=== PATIENT | female | born 1930 | race Caucasian/White ===

== ENCOUNTER 2016-11-06 12:25 | Inpatient (IN) | payer MEDICARE, OTHER ==
[~2016-11-06] VITALS: Ht 144.8 cm; Wt 51.7 kg
[~2016-11-06 12:25] MED LIST: /PANT40TA PO; ALLO100T PO; ASPI81TA31 PO; ATEN25TA PO; CALCCHW12 PO; NAPR250T2 PO; NEUR100C PO; NYSTOI EXT; SIMV20TA2 PO; TESS200C PO; ULTR37.539 PO; VITA-113 PO; VOLT1GEL2 TD; [UNRECOGNIZED DRUG - CODE] PO; systane OU
[2016-11-06] MEDS ORDERED: MORPHINE 2 MG/ML 1ML SYRINGE As Ordered ONE ×4 (13:01→16:49)
[2016-11-06] MEDS ORDERED: ONDANSETRON 4MG/2ML VIAL (J2405) As Ordered ONE ×2 (13:01→22:28)
[2016-11-06 13:37] LABS: BASO % 0.4 % (0.0-1.0); EOS # 0.1 K/mm3 (0.0-0.50); EOS % 1.2 % (0.0-3.0); LARGE UNSTAINED CELL # 0.1 K/mm3 (0.0-0.4); LARGE UNSTAINED CELL % 2.5 % (0.0-4.0); LYMPH # 1.4 K/mm3 (1.5-4.5); LYMPH % 31.4 % (24.0-44.0); MEAN CORPUSCULAR HEMOGLOBIN 32.8 pg (27.0-33.0); MEAN CORPUSCULAR VOLUME 102.5 fl (80.0-96.0); MONO # 0.1 K/mm3 (0.0-0.8); MONO % 3.1 % (0.0-5.0); NEUTROPHILS # 2.7 K/mm3 (1.8-7.7); NEUTROPHILS % 61.4 % (36.0-66.0); PLATELET COUNT, AUTOMATED 139 k/mm3 (150-450); RED CELL DISTRIBUTION WIDTH 13.2 % (11.5-14.5); WHITE BLOOD COUNT 4.5 K/mm3 (4.0-10.0)
[2016-11-06 13:49] LABS: ANION GAP 6 MEQ/L (8-16); BLOOD UREA NITROGEN 27 MG/DL (7-18); CARBON DIOXIDE LEVEL 31 MEQ/L (21-32); CHLORIDE LEVEL 106 MEQ/L (98-107); CREATININE FOR GFR 0.91 MG/DL (0.55-1.02); GLOMERULAR FILTRATION RATE > 60.0 (>32); GLUCOSE, FASTING 169 MG/DL (83-110); POTASSIUM SERUM 3.9 MEQ/L (3.5-5.1); SODIUM LEVEL 143 MEQ/L (136-145)
--- NOTE | 2016-11-06 14:44 | REP ---
AP PELVIS AND LEFT HIP: 11/06/2016. Clinical history: Trauma. Three views provided. Bones are demineralized. There are degenerative changes lumbar spine and SI joints. There is an intertrochanteric comminuted fracture with varus deformity of the left hip. No subluxation or dislocation of the left hip. No other fracture. Signed by Valente Melara MD 11/06/2016 07:40 P
--- NOTE | 2016-11-06 14:46 | REP ---
AP PORTABLE CHEST: 11/06/2016. Comparison: Seated AP portable chest compared to 05/16/2011 chest x-ray. Lungs are less well inflated than on the previous study with slight elevation right diaphragm. CP angles sharply defined. Some underlying fibrosis and apical scarring. No pulmonary edema or acute infiltrate. There is pulmonary artery hypertension. Left ventricular configuration of the heart again seen. The aorta is calcified at the arch, mildly tortuous. No widening of mediastinum. Bones demineralized. Impression: 1. Some underlying COPD, fibrosis and pulmonary artery hypertension with left ventricular configuration of the heart but no edema, infiltrate or effusion. Signed by Valente Melara MD 11/06/2016 07:40 P
[2016-11-06] MEDS ORDERED: ASPI1TAB PO (16:07)
[2016-11-06] MEDS ORDERED: PROT1TAB2 PO (16:07)
[2016-11-06] MEDS ORDERED: ALLO100T PO (16:07)
[2016-11-06] MEDS ORDERED: ATEN25TA PO (16:07)
[2016-11-06] MEDS ORDERED: TRAM37.53 PO (16:07)
[2016-11-06] MEDS ORDERED: VITA100066 PO (16:07)
[2016-11-06] MEDS ORDERED: COLA100C PO (16:07)
[2016-11-06] MEDS ORDERED: SIMV20TA2 PO (16:07)
[2016-11-06] MEDS ORDERED: FLAX1000 PO (16:07)
[2016-11-06] MEDS ORDERED: BRIM1OPD OU (16:07)
[2016-11-06] MEDS ORDERED: CALC600T21 PO (16:07)
[2016-11-06] MEDS ORDERED: ONDANSETRON 4MG/2ML VIAL (J2405) IV PRN ×2 (16:30→23:00)
[2016-11-06] MEDS ORDERED: DOCUSATE SODIUM 100 MG CAP PO PRN (16:30)
[2016-11-06] MEDS ORDERED: MORPHINE 2 MG/ML 1ML SYRINGE IV PRN (16:30)
[2016-11-06] MEDS ORDERED: PERCOCET 5MG/325MG TAB PO PRN ×2 (16:30→23:00)
--- NOTE | 2016-11-06 17:04 | HPEPDOC ---
Medical History and Physical Date of Admission Nov 06, 2016 at 16:16 History and Physical PRIMARY CARE PROVIDER: ATTENDING: Anderson Gallo MD CHIEF COMPLAINT: HISTORY OF PRESENT ILLNESS: This is a 86-year-old female with a past medical history of chronic left bundle- branch block, hypertension, hyperlipidemia, osteoporosis, compression fractures , squamous cell skin cancer, diverticulosis who presents status post fall. Patient's states that she is very short and needs a cushion under her chair when sitting at the dining table. Patient states that the cushion slipped off, and she fell off of the chair. Patient had a mechanical fall. No chest pain/ shortness of breath/syncopal episodes. No palpitations. No prior episodes. This is her first fall. Patient had no loss of consciousness. Patient was found to have a left hip fracture. I have spoken Dr. Sanchez given and this left bundle-branch block and no records available within these medical records. Dr. Sanchez viewed ther records from Dr. Villarreal' office, with a stress test that was done in 2012 which was negative. He has also stated that's the patient had an echocardiogram in 2014 with moderate aortic valve sclerosis however no stenosis. Preserved EF, grade 1 diastolic dysfunction. Patient is able to walk up 12 stairs with no dyspnea exertion or chest pain. She is typically very careful walking up the stairs on given the fact that she occasionally is unstable on her feet and occasionally uses a walker and a cane. Patient currently denies any chest pain/shortness of breath/palpitations. She does have an EKG with chronic left bundle-branch block. No arrhythmias. PAST MEDICAL HISTORY: As per HPI PAST SURGICAL HISTORY: Hysterectomy, bilateral breast reduction SOCIAL HISTORY: Denies tobacco, alcohol, illicit drug use. FAMILY HISTORY: Noncontributory ALLERGIES: Please see below. REVIEW OF SYSTEMS: HEENT: Denies sore throat/headache CARDIOVASCULAR: Denies chest pain/palpitations RESPIRATORY: No shortness of breath/cough GASTROINTESTINAL: denies nausea/vomiting GENITOURINARY: Denies dysuria/urinary urgency. MUSCULOSKELETAL: Denies myalgias/arthralgias NEUROLOGICAL: Denies any focal weakness Rest of ROS negative. HOME MEDICATIONS: Please see below. PHYSICAL EXAMINATION: Vitals: (see below) General: No acute distress, laying comfortably in bed. HEENT: Moist mucous membranes. Neck: No JVD or lymphadenopathy Cardiac: 2/6 systolic murmur LLSB. RRR Pulm: Clear to auscultation b/l. No wheezing, rhonchi Abd: NT/ND + BS Ext: No edema or cyanosis. Left hip shortened. Painful on movement. Distal pulses intact. LABORATORY DATA: See below. IMAGING: X ray left hip 11/06/16 Three views provided. Bones are demineralized. There are degenerative changes lumbar spine and SI joints. There is an intertrochanteric comminuted fracture with varus deformity of the left hip. No subluxation or dislocation of the left hip. No other fracture. CXR 11/06/16 Impression: 1. Some underlying COPD, fibrosis and pulmonary artery hypertension with left ventricular configuration of the heart but no edema, infiltrate or effusion. MICROBIOLOGY: Please see below. ASSESSMENT/PLAN: Left hip fracture status post Mechanical fall. Patient will be undergoing a left hip fracture repair with Dr. Mcarthur. Patient has a chronic left bundle branch block. No arrhythmias, is not in decompensated heart failure, no chest pain/palpitations, no history of diabetes, creatinine 0.9. This is an intermediate risk procedure and the patient is intermediate risk. The patient' s RCRI 0 with a 0.4% risk of major cardiac events. The patient is stable on from a cardiac perspective by Dr. Sanchez. She is also medically optimized. Pain management and DVT perplexes per orthopedics. Hypertension- I continue home meds. Will add amlodipine. Hyperlipidemia- continue statin Osteoporosis- on vitamin D GERD-continue PPI DVT prophylaxis per orthopedics Patient was followed by Dr. Wilson starting 11/07/16 at 7 AM. Vital Signs Blood pressure was 60/74, heart rate 77, respiratory rate 16, afebrile, 99% on room air Laboratory Data Labs 24H Laboratory Tests 2 11/06/16 12:59: Activated Partial Thromboplast Time 32.0, Anion Gap 6L, White Blood Count 4.5, Red Blood Count 3.51L, Hemoglobin 11.5L, Hematocrit 36.0, Mean Corpuscular Volume 102.5H, Mean Corpuscular Hemoglobin 32.8, Mean Corpuscular Hemoglobin Concent 32.0, Red Cell Distribution Width 13.2, Platelet Count 139L, Neutrophils (%) (Auto) 61.4, Lymphocytes (%) (Auto) 31.4, Monocytes (%) (Auto) 3.1, Eosinophils (%) (Auto) 1.2, Basophils (%) (Auto) 0.4, Neutrophils # (Auto) 2.7, Lymphocytes # (Auto) 1.4L, Monocytes # (Auto) 0.1, Eosinophils # (Auto) 0.1 , Basophils # (Auto) 0.0, Blood Urea Nitrogen 27H, Creatinine 0.91, Sodium Level 143, Potassium Level 3.9, Chloride Level 106, Carbon Dioxide Level 31, Calcium Level 9.0, Total Creatine Kinase 75, Creatine Kinase MB 3.4, Creatine Kinase MB Relative Index 4.53H, Glomerular Filtration Rate > 60.0, Large Unclassified Cells # 0.1, Large Unclassified Cells % 2.5, Prothromb Time International Ratio 1.00, Prothrombin Time 13.3, Troponin I 0.02 CBC/BMP Laboratory Tests 11/06/16 12:59 Calcium Level 9.0, Total Creatine Kinase 75, Red Blood Count 3.51 L, Mean Corpuscular Volume 102.5 H, Mean Corpuscular Hemoglobin 32.8, Mean Corpuscular Hemoglobin Concent 32.0, Red Cell Distribution Width 13.2, Neutrophils (%) (Auto ) 61.4, Lymphocytes (%) (Auto) 31.4, Monocytes (%) (Auto) 3.1, Eosinophils (%) ( Auto) 1.2, Basophils (%) (Auto) 0.4, Neutrophils # (Auto) 2.7, Lymphocytes # ( Auto) 1.4 L, Monocytes # (Auto) 0.1, Eosinophils # (Auto) 0.1, Basophils # (Auto ) 0.0 Home Medications Scheduled Allopurinol (Allopurinol) 100 Mg Tab 100 MG PO BID Aspirin (Aspirin 81) 81 Mg Tab 40.5 MG PO QHS Atenolol (Atenolol) 25 Mg Tab 12.5 MG PO QHS Brimonidine Tartrate 0.1% (Alphagan P) 100 Drop/5 Ml Soln 1 DROP OU BID Calcium Carbonate (Calcium) 600 Mg Tab 600 MG PO DAILY Cholecalciferol (Vitamin D) 1,000 Unit Tab 1,000 UNIT PO DAILY Linseed Oil (Flaxseed Oil) 1,000 Mg Cap 2,000 MG PO BID Pantoprazole Sodium Sesquihydr (Protonix) 40 Mg Tab 40 MG PO BID Simvastatin (Simvastatin) 20 Mg Tab 20 MG PO QHS Tramadol/Apap (Tramadol Hydrochloride/AC 37.5-325 mg) 1 Tab Tab 0.5 TAB PO QHS Scheduled PRN Docusate Sodium (Colace) 100 Mg Cap 100 MG PO BID PRN PRN CONSTIPATION Allergies Coded Allergies: IZABELLA Inhibitors (Verified Allergy, Severe, FACIAL SWELLING, LEG TINGLING, ) Angiotensin Receptor Blockers (Verified Allergy, Severe, FACIAL SWELLING, LEG TINGLING, 01/01/13) Carvedilol (Verified Allergy, Mild, RASH, 01/01/13) Penicillins (Verified Allergy, Mild, RASH, 01/01/13) Amoxicillin (Unverified Allergy, Unknown, RASH, 11/06/16) Clavulanic Acid (Unverified Allergy, Unknown, RASH, 11/06/16) Clindamycin (Unverified Allergy, Unknown, RASH, 11/06/16) Dexamethasone (Unverified Allergy, Unknown, HIVES, 11/06/16) Methylprednisolone (Unverified Allergy, Unknown, HIVES, 11/06/16) Hydrocortisone (Verified Adverse Reaction, Intermediate, BLISTERS, 01/01/13) ANDERSON GALLO MD Nov 06, 2016 17:03
[2016-11-06 18:00] VITALS: BP 154/67
--- NOTE | 2016-11-06 18:09 | EDDOCDS ---
Physician Documentation [facility] Name: Aliyah Washburn Age: 86 yrs Sex: Female : 1930 Arrival Date: 11/06/2016 Time: 12:25 Bed 14 Private MD: Disposition: 11/06 14:49 Critical Care: Critical care not applicable. pc Disposition: 11/06/16 14:51 Hospitalization ordered by Donnie Gallo for Inpatient Admission. Preliminary diagnosis are Fall from chair, Nondisplaced intertrochanteric fracture of left femur. - Bed requested for 5 [place]. - Status is Inpatient Admission. kc3 - Condition is Stable. - Problem is new. - Symptoms have improved. HPI: 12:51 This 86 yrs old Female presents to ER via Ambulance with complaints of Fall pc Injury. 12:51 The history is obtained from the patient. She slipped off her chair cushion she uses to pc boost herself at the dining table, landing on her left hip. She has pain in her groin and hip area. She denies hitting her head, LOC or any other injuries. At their worst, the symptoms were a 10 out of 10. In the emergency department, the symptoms are a 10 out of 10. The patient has not experienced similar symptoms in the past. The patient has been recently seen by their primary care provider, for a routine, regularly scheduled appointment. Historical: - Allergies: Dexamethasone Sodium Phosphate (Hives, Rash); Depo-Medrol (Hives, Rash); PENICILLINS (Rash); IZABELLA INHIBITORS (Rash); Augmentin (Rash); carvedilol (Rash); ANGIOTENSIN RECEPTOR ANTAGONIST (Rash); Clindamycin (Rash); - Home Meds: 1. atenolol 25 mg oral tab once daily 2. Protonix 40 mg Oral TbEC 1 tab 2 times per day 3. simvastatin 20 mg Oral tab 1 tab once daily 4. allopurinol 100 mg Oral tab 1 tab 2 times per day 5. Colace 100 mg oral cap 1 cap 2 times per day 6. tramadol 50 mg oral tab every 6 hours as needed 7. Calcium 600mg twice a day 8. aspirin 81 mg Oral chew 1 tab once daily 9. Vitamin D Oral 400 unit daily - PMHx: GERD; Gout; Hypercholesterolemia; Hypertension; Osteoporosis; Compression fractures; Squamous cell carcinoma; Diverticulosis; UTI; Left BBB; Vertigo; Anemia; - PSHx: Hysterectomy; bilateral breast reduction; - The history from nurses notes was reviewed: and I agree with what is documented. - Social history: Smoking status: Patient states was never smoker of tobacco. No barriers to communication noted, The patient speaks fluent Pashto, Speaks appropriately for age. - : The pt / caregiver states he / she is not on anticoagulants. Home medication list is obtained from the patient. - Hospitalizations: : No recent hospitalization is reported. - Exposure Risk Screening:: None identified. - Immunization history:: All immunizations up-to-date. - Family history: Not pertinent. - Social history:: the patient is a non-smoker, the patient does not drink alcohol. ROS: 12:51 All systems are negative except as listed. pc Exam: 12:51 General Appearance: alert, the patient is in mild distress. pc 12:51 EENT: normal eye inspection, ears, nose and throat normal, pharynx normal, mucous membranes moist 12:51 Neck: The exam reveals no acute abnormalities. ROM is normal and painless. No nuchal rigidity is noted.. 12:51 Respiratory: no respiratory distress, normal breath sounds, chest non-tender. 12:51 CVS: regular pulse rate, regular rhythm, normal S1 and S2, no murmurs, strong peripheral pulses. 12:51 Abdomen: soft, non-tender, no organomegaly, normal bowel sounds. 12:51 Back: normal inspection. 12:51 Skin: skin color is normal, warm, dry, healing right LE ulcer. 12:51 Extremities: grossly normal except: noted in the left hip: decreased ROM, pain, leg shortened by 2cm. NVT normal, noted in the left femoral area: pain. 12:51 Neuro: no motor deficits, no sensory deficits. Vital Signs: 12:45 BP 178 / 74 LA Sitting (auto/reg); Pulse 77; Resp 18; Temp 95.5; Pulse Ox 99% on R/A; jrd Weight 51.71 kg / 114 lbs (R); Height 57 in. (144.78 cm); 13:37 BP 193 / 82 (auto/); kc3 13:38 Pulse 64 MON; Pulse Ox 97% ; kc3 13:52 BP 194 / 81 (auto/); kc3 13:52 Pulse 68 MON; Pulse Ox 98% ; kc3 14:07 BP 173 / 70 (auto/); kc3 14:07 Pulse 66 MON; Pulse Ox 97% ; kc3 14:22 BP 184 / 77 (auto/); kc3 14:22 Pulse 68 MON; Temp 96.9(O); Pulse Ox 96% ; kc3 14:36 Pulse 64 MON; Pulse Ox 96% ; kc3 14:37 BP 162 / 58 (auto/); kc3 14:51 Pulse 66 MON; Pulse Ox 97% ; kc3 14:52 BP 164 / 70 (auto/); kc3 15:06 Pulse 64 MON; Pulse Ox 95% ; kc3 15:07 BP 160 / 71 (auto/); kc3 15:16 BP 160 / 71; kc3 15:22 BP 154 / 69 (auto/); kc3 15:22 Pulse 64 MON; Pulse Ox 94% ; kc3 15:37 BP 172 / 67 (auto/); kc3 15:37 Pulse 66 MON; Pulse Ox 98% ; kc3 15:51 Pulse 70 MON; Pulse Ox 100% ; kc3 15:52 BP 172 / 72 (auto/); kc3 16:07 Pulse 68 MON; Pulse Ox 98% ; kc3 16:07 BP 179 / 97 (auto/); kc3 16:18 Pulse 66 MON; Pulse Ox 96% ; kc3 16:20 BP 164 / 71 (auto/); kc3 16:36 Pulse 68 MON; Pulse Ox 95% ; kc3 16:37 BP 171 / 76 (auto/); kc3 16:57 BP 171 / 76; Pain 9/10; kc3 17:06 Pulse 68 MON; Pulse Ox 96% ; kc3 17:07 BP 154 / 66 (auto/); kc3 17:37 BP 174 / 69 (auto/); kc3 17:37 Pulse 66 MON; Pulse Ox 96% ; kc3 18:02 BP 146 / 71 RA Sitting (auto/reg); Pulse 74; Resp 18; Temp 96.6(O); Pulse Ox 97% on jrd R/A; Pain 8/10; 18:06 Pain 8/10; kc3 12:45 Body Mass Index 24.67 (51.71 kg, 144.78 cm) jrd MDM: 12:50 IV Saline Lock ordered. pc 12:50 morphine 2 mg IVP once ordered. pc 12:50 Ondansetron 4 mg IVP once ordered. pc 12:51 NOTHING BY MOUTH+DIET ordered. EDMS 12:51 Hip,AP,LAT to include Pelvis Ordered. EDMS 12:51 Differential Diagnosis: fall; left hip and pelvic contusions r/o fractures. Plan: pc analgesia, imaging. 13:20 NS 0.9% 1000 ml IV at 100 mL/hr continuous ordered. pc 13:22 Chest, 1 View Ordered. EDMS 13:22 CBC with Diff Ordered. EDMS 13:22 MED Profile Ordered. EDMS 13:22 CIP Ordered. EDMS 13:22 Troponin Ordered. EDMS 13:22 Type & Screen Ordered. EDMS 13:22 Pt & Aptt Ordered. EDMS 13:22 ECG WITH READING ER PHYS+CARDIAG ordered. EDMS 13:32 Financial registration complete. mm15 13:43 [facility] Payment Agreement was scanned into [employer] and attached to record. mm15 14:08 Test interpretation: EKG. pc 14:10 CBC with Diff Reviewed. pc 14:10 MED Profile Reviewed. pc 14:10 CIP Reviewed. pc 14:10 Troponin Reviewed. pc 14:10 Pt & Aptt Reviewed. pc 14:15 Repeat Temperature - Oral: Inform provider of result ordered. pc 14:26 Type & Screen Reviewed. pc 14:49 morphine 2 mg IVP every 15 minutes; Document pain score/vitals after each dose (Hold if pc SBP < 90mmHg) x3 ordered. 14:49 Data reviewed: old medical records, vital signs, nurses notes, EKG(s), lab test pc results, all radiology studies and available results. Test interpretation: LAB - all labs as ordered have been reviewed, interpreted and considered in the overall management of the clinical presentation; X-RAY - interpreted by Radiologist and personally reviewed, 1 view chest no acute disease, Hip Left Fracture Intertrochanteric. The patient has been re-examined and re-evaluated. The patient's symptoms have mildly improved after treatment. Physician consultation: Dr. Cecil Mcarthur regarding patient's condition, and will see patient in ED. 14:49 Physician consultation: Dr. Donnie Gallo regarding admission, and will see patient in ED. Disposition: The historical points, examination findings, and any diagnostic results supporting the provided diagnosis, were discussed with the patient or legal guardian. The need for further work-up and/or treatment in the hospital was explained. 14:50 BED REQUEST+ADM ordered. EDMS 16:20 Admission / Observation Status ordered. EDMS 16:20 NPO DIET ordered. EDMS 16:21 CARDIAC INJURY PROFILE Ordered. EDMS 16:21 TROPONIN Ordered. EDMS 16:23 PHYSICAL THERAPY EVAL & TREAT ordered. EDMS 16:52 Hip, IN O.R. Ordered. EDMS EC:08 Rate is 62 beats/min. Rhythm is regular, Normal Sinus Rhythm. Left axis deviation pc noted. QRS is negative in leads II, aVF. KS interval is normal. QRS interval is prolonged at 145 msec. T waves are Inverted in leads I, aVL, V5, V6. ST Segment is elevated in leads III, aVF, V1, V2, V3, 1-2mm. ST Segment is depressed in leads I, aVL, V5, V6. Clinical impression: Normal Sinus Rhythm, LBBB, and LAD. No change from previous ECG in April,. Administered Medications: 13:05 Drug: morphine 2 mg [morphine 2 mg/mL intravenous cartridge (1 mL)] Route: IVP; Site: [facility] left antecubital; 13:05 Drug: Ondansetron 4 mg [ondansetron HCl 2 mg/mL intravenous solution (2 mL)] Route: kc3 IVP; Site: left antecubital; 13:56 Drug: NS 0.9% 1000 ml [sodium chloride 0.9 % intravenous solution] Route: IV; Rate: 100 kc3 mL/hr; Site: left antecubital; 14:55 Drug: morphine 2 mg [morphine 2 mg/mL intravenous cartridge (1 mL)] Route: IVP; Site: [facility] left antecubital; 15:16 Follow up: BP 160 / 71; Pt reports does not want any more pain medication at this time. kc3 16:26 Drug: morphine 2 mg [morphine 2 mg/mL intravenous cartridge (1 mL)] Route: IVP; Site: 3 left antecubital; 16:57 Follow up: BP 171 / 76; Pain 9/10 Adult kc3 16:58 Drug: morphine 2 mg [morphine 2 mg/mL intravenous cartridge (1 mL)] Route: IVP; Site: [facility] left antecubital; 18:06 Follow up: Pain 8/10 Adult kc3 Signatures: Dispatcher [employer] EDMT Chafe, [place], MD MD pc Elyse Ruiz, Ophthalmic Aide Unit deg Kobe Ardon mm15 Nandini Vickers,RN RN kc3 The chart was reviewed and I authenticate all verbal orders and agree with the evaluation and treatment provided.Attachments: 13:43 [facility] Payment Agreement mm15 MTDD
--- NOTE | 2016-11-06 18:10 | EDDOCDS ---
Nurse's Notes [facility] Name: Aliyah Washburn Age: 86 yrs Sex: Female : 1930 Arrival Date: 11/06/2016 Time: 12:25 Bed 14 Private MD: Diagnosis: Fall from chair;Nondisplaced intertrochanteric fracture of left femur Presentation: 11/06 12:37 Presenting complaint: EMS states: Pt fell from chair to floor with injury to left hip. kc3 No LOC or head injury reported. Left left noted to be shortened and rotated out. Suicide/Homicide risk assessment- the patient denies having any suicidal and/or homicidal ideations and does not present with any other emotional, behavioral or mental health complaints. Status: Patient is not a health services information specialist or dependent. Transition of care: patient was not received from another setting of care. 12:37 Acuity: ELENI Level 3 kc3 12:37 Method Of Arrival: Ambulance kc3 13:15 Adult Sepsis Screening: The patient does not have new or worsening altered mentation. kc3 Patient's respiratory rate is less than 22. Systolic blood pressure is greater than 100. Patient has a qSOFA score of 0- Negative Sepsis Screen. Triage Assessment: 13:13 General: Appears uncomfortable, Behavior is appropriate for age, cooperative. Pain: kc3 Location: left hip. The patient is triaged at the bedside. See Assessment in Nurses Notes section of ED record. Neurological: Level of Consciousness is awake, alert, obeys commands, Oriented to person, place, time. Cardiovascular: Pulses are palpable in left dorsalis pedis artery. Respiratory: Respiratory effort is even, unlabored. Derm: Skin is normal. Musculoskeletal: Range of motion limited in left hip left leg noted to be shortened and externally rotated. Injury Description: pt fell. Historical: - Allergies: Dexamethasone Sodium Phosphate (Hives, Rash); Depo-Medrol (Hives, Rash); PENICILLINS (Rash); IZABELLA INHIBITORS (Rash); Augmentin (Rash); carvedilol (Rash); ANGIOTENSIN RECEPTOR ANTAGONIST (Rash); Clindamycin (Rash); - Home Meds: 1. atenolol 25 mg oral tab once daily 2. Protonix 40 mg Oral TbEC 1 tab 2 times per day 3. simvastatin 20 mg Oral tab 1 tab once daily 4. allopurinol 100 mg Oral tab 1 tab 2 times per day 5. Colace 100 mg oral cap 1 cap 2 times per day 6. tramadol 50 mg oral tab every 6 hours as needed 7. Calcium 600mg twice a day 8. aspirin 81 mg Oral chew 1 tab once daily 9. Vitamin D Oral 400 unit daily - PMHx: GERD; Gout; Hypercholesterolemia; Hypertension; Osteoporosis; Compression fractures; Squamous cell carcinoma; Diverticulosis; UTI; Left BBB; Vertigo; Anemia; - PSHx: Hysterectomy; bilateral breast reduction; - The history from nurses notes was reviewed: and I agree with what is documented. - Social history: Smoking status: Patient states was never smoker of tobacco. No barriers to communication noted, The patient speaks fluent Yakut, Speaks appropriately for age. - : The pt / caregiver states he / she is not on anticoagulants. Home medication list is obtained from the patient. - Hospitalizations: : No recent hospitalization is reported. - Exposure Risk Screening:: None identified. - Immunization history:: All immunizations up-to-date. - Family history: Not pertinent. - Social history:: the patient is a non-smoker, the patient does not drink alcohol. Screenin:15 Screening information is obtained from the patient. Fall risk: At risk due to prior kc3 history of falls, The following interventions are performed due to a positive Fall Risk Screen: Fall Risk is added to Special Handling on the patient Summary Screen. A Fall Risk Bracelet was applied to the patient. Side Rails are placed in the up position. A Call Topete is given with instruction to call for help when getting out of bed. Fall Alert bracelet is placed on the patient. Assistance ADL's: requires no assistance with activities of daily living. Abuse/DV Screen: The patient / caregiver reports he/she is: not in a situation that causes fear, pain or injury. Nutritional screening: No deficits noted. home support is adequate. 18:05 Advance Directives: Currently, there is a health care proxy, Nayana Michaud, kc3 daughter. Assessment: 13:15 General: See triage noted for initial assessment. . kc3 14:00 General: Appears in no apparent distress, comfortable, Behavior is appropriate for age, kc3 cooperative. Pain: Location: left hip. Neurological: No deficits noted. Respiratory: Respiratory effort is even, unlabored, Respiratory pattern is regular, symmetrical. Derm: Skin is pink, warm & dry. Family at bedside. 15:17 General: Appears in no apparent distress, comfortable, Behavior is appropriate for age, kc3 cooperative, Pt reports not wanting any more pain medication at this time. . Pain: Location: left hip. Neurological: No deficits noted. Respiratory: Respiratory effort is even, unlabored. Derm: Skin is pink, warm & dry. 16:26 General: Appears in no apparent distress, comfortable, Behavior is appropriate for age, kc3 cooperative, Pt requesting pain medication at this time. . 17:20 General: Appears in no apparent distress, comfortable, Behavior is appropriate for age, kc3 cooperative. Pain: Location: left hip. Neurological: No deficits noted. Respiratory: Respiratory effort is even, unlabored, Respiratory pattern is regular, symmetrical. Derm: Skin is pink, warm & dry. 18:03 General: Appears in no apparent distress, comfortable, Behavior is appropriate for age, kc3 cooperative. Pain: Location: left hip Pain currently is 8 out of 10 on a pain scale. Neurological: Level of Consciousness is awake, alert, obeys commands, Oriented to person, place, time. Respiratory: Respiratory effort is even, unlabored. Derm: Skin is pink, warm & dry. Vital Signs: 12:45 BP 178 / 74 LA Sitting (auto/reg); Pulse 77; Resp 18; Temp 95.5; Pulse Ox 99% on R/A; jrd Weight 51.71 kg (R); Height 57 in. (144.78 cm); 13:37 BP 193 / 82 (auto/); kc3 13:38 Pulse 64 MON; Pulse Ox 97% ; kc3 13:52 BP 194 / 81 (auto/); kc3 13:52 Pulse 68 MON; Pulse Ox 98% ; kc3 14:07 BP 173 / 70 (auto/); kc3 14:07 Pulse 66 MON; Pulse Ox 97% ; kc3 14:22 BP 184 / 77 (auto/); kc3 14:22 Pulse 68 MON; Temp 96.9(O); Pulse Ox 96% ; kc3 14:36 Pulse 64 MON; Pulse Ox 96% ; kc3 14:37 BP 162 / 58 (auto/); kc3 14:51 Pulse 66 MON; Pulse Ox 97% ; kc3 14:52 BP 164 / 70 (auto/); kc3 15:06 Pulse 64 MON; Pulse Ox 95% ; kc3 15:07 BP 160 / 71 (auto/); kc3 15:16 BP 160 / 71; kc3 15:22 BP 154 / 69 (auto/); kc3 15:22 Pulse 64 MON; Pulse Ox 94% ; kc3 15:37 BP 172 / 67 (auto/); kc3 15:37 Pulse 66 MON; Pulse Ox 98% ; kc3 15:51 Pulse 70 MON; Pulse Ox 100% ; kc3 15:52 BP 172 / 72 (auto/); kc3 16:07 Pulse 68 MON; Pulse Ox 98% ; kc3 16:07 BP 179 / 97 (auto/); kc3 16:18 Pulse 66 MON; Pulse Ox 96% ; kc3 16:20 BP 164 / 71 (auto/); kc3 16:36 Pulse 68 MON; Pulse Ox 95% ; kc3 16:37 BP 171 / 76 (auto/); kc3 16:57 BP 171 / 76; Pain 9/10; kc3 17:06 Pulse 68 MON; Pulse Ox 96% ; kc3 17:07 BP 154 / 66 (auto/); kc3 17:37 BP 174 / 69 (auto/); kc3 17:37 Pulse 66 MON; Pulse Ox 96% ; kc3 18:02 BP 146 / 71 RA Sitting (auto/reg); Pulse 74; Resp 18; Temp 96.6(O); Pulse Ox 97% on jrd R/A; Pain 8/10; 18:06 Pain 8/10; kc3 12:45 Body Mass Index 24.67 (51.71 kg, 144.78 cm) [facility] Vitals: 13:15 Log In Time N/A - ambulance arrival. [facility] ED Course: 12:26 Patient visited by Elyse Ruiz, Api Architect. deg 12:26 Nandini Vickers,RN is Primary Nurse. deg 12:26 Patient moved to Waiting deg 12:26 Patient moved to 14 deg 12:41 Triage Initiated 3 12:43 Tex Calvert MD is Attending Physician. pc 12:45 Pt greeted and oriented to ED. Patient advised of names of staff involved in care, jrd location of call topete, wait times and NPO status. Patient has correct armband on for positive identification. Placed in gown. Bed in low position. Call light in reach. Side rails up X2. monitoring tech on. Pulse ox on. NIBP on. 12:47 Patient visited by Jalen Thapa PCA. jrd 12:50 Patient visited by Tex Calvert MD. pc 13:16 Patient visited by Nandini Vickers,RN. kc3 13:16 The patient / caregiver is instructed regarding the plan of care and ED course. kc3 13:16 Inserted saline lock: 20 gauge in left antecubital area and blood collected. The kc3 patient tolerated the procedure well. 13:29 Pt & Aptt Sent. kc3 13:29 Type & Screen Sent. kc3 13:29 Troponin Sent. kc3 13:29 CIP Sent. kc3 13:29 MED Profile Sent. kc3 13:29 CBC with Diff Sent. kc3 13:39 Patient visited by Rimma Rojo. sew 13:39 EKG done. (by ED staff). Reviewed by Tex Calvert MD. sew 13:43 [facility] Payment Agreement was scanned into [employer] and attached to record. mm15 14:12 Patient visited by Nandini Vickers,RN. kc3 14:47 Patient visited by Nandini Vickers,CHARLENE. kc3 14:51 Donnie Gallo is Hospitalizing Provider. pc 14:59 Hip,AP,LAT to include Pelvis Returned. EDMS 14:59 Chest, 1 View Returned. EDMS 15:30 Patient moved to Admit Hold dy 15:30 Patient moved to 14 dy 18:03 Patient visited by Jalen Thapa PCA. jrd 18:04 No procedures done that require assistance. kc3 Administered Medications: 13:05 Drug: morphine 2 mg [morphine 2 mg/mL intravenous cartridge (1 mL)] Route: IVP; Site: kc3 left antecubital; 13:05 Drug: Ondansetron 4 mg [ondansetron HCl 2 mg/mL intravenous solution (2 mL)] Route: kc3 IVP; Site: left antecubital; 13:56 Drug: NS 0.9% 1000 ml [sodium chloride 0.9 % intravenous solution] Route: IV; Rate: 100 kc3 mL/hr; Site: left antecubital; 14:55 Drug: morphine 2 mg [morphine 2 mg/mL intravenous cartridge (1 mL)] Route: IVP; Site: kc3 left antecubital; 15:16 Follow up: BP 160 / 71; Pt reports does not want any more pain medication at this time. kc3 16:26 Drug: morphine 2 mg [morphine 2 mg/mL intravenous cartridge (1 mL)] Route: IVP; Site: kc3 left antecubital; 16:57 Follow up: BP 171 / 76; Pain 9/10 Adult kc3 16:58 Drug: morphine 2 mg [morphine 2 mg/mL intravenous cartridge (1 mL)] Route: IVP; Site: 3 left antecubital; 18:06 Follow up: Pain 8/10 Adult kc3 Intake: Order Results: Lab Order: CBC with Diff; SPEC'M 11/06/16 12:59 Test: WHITE BLOOD COUNT; Value: 4.5; Range: 4.0-10.0; Units: K/mm3; Status: F Test: RED BLOOD COUNT; Value: 3.51; Range: 4.00-5.40; Abnormal: Below low normal; Units: M/mm3; Status: F Test: HEMOGLOBIN; Value: 11.5; Range: 12.0-16.0; Abnormal: Below low normal; Units: g/dl; Status: F Test: HEMATOCRIT; Value: 36.0; Range: 36.0-47.0; Units: %; Status: F Test: MEAN CORPUSCULAR VOLUME; Value: 102.5; Range: 80.0-96.0; Abnormal: Above high normal; Units: fl; Status: F Test: MEAN CORPUSCULAR HEMOGLOBIN; Value: 32.8; Range: 27.0-33.0; Units: pg; Status: F Test: MEAN CORPUSCULAR HGB CONC; Value: 32.0; Range: 32.0-36.5; Units: g/dl; Status: F Test: RED CELL DISTRIBUTION WIDTH; Value: 13.2; Range: 11.5-14.5; Units: %; Status: F Test: PLATELET COUNT, AUTOMATED; Value: 139; Range: 150-450; Abnormal: Below low normal; Units: k/mm3; Status: F Test: NEUTROPHILS %; Value: 61.4; Range: 36.0-66.0; Units: %; Status: F Test: LYMPH %; Value: 31.4; Range: 24.0-44.0; Units: %; Status: F Test: MONO %; Value: 3.1; Range: 0.0-5.0; Units: %; Status: F Test: EOS %; Value: 1.2; Range: 0.0-3.0; Units: %; Status: F Test: BASO %; Value: 0.4; Range: 0.0-1.0; Units: %; Status: F Test: LARGE UNSTAINED CELL %; Value: 2.5; Range: 0.0-4.0; Units: %; Status: F Test: NEUTROPHILS #; Value: 2.7; Range: 1.8-7.7; Units: K/mm3; Status: F Test: LYMPH #; Value: 1.4; Range: 1.5-4.5; Abnormal: Below low normal; Units: K/mm3; Status: F Test: MONO #; Value: 0.1; Range: 0.0-0.8; Units: K/mm3; Status: F Test: EOS #; Value: 0.1; Range: 0.0-0.50; Units: K/mm3; Status: F Test: BASO #; Value: 0.0; Range: 0.0-0.2; Units: K/mm3; Status: F Test: LARGE UNSTAINED CELL #; Value: 0.1; Range: 0.0-0.4; Units: K/mm3; Status: F Lab Order: [facility]; [facility]' 11/06/16 12:59 Test: GLUCOSE, FASTING; Value: 169; Range: 83-110; Abnormal: Above high normal; Units: MG/DL; Status: F Test: BLOOD UREA NITROGEN; Value: 27; Range: 7-18; Abnormal: Above high normal; Units: MG/DL; Status: F Test: CREATININE FOR GFR; Value: 0.91; Range: 0.55-1.02; Units: MG/DL; Status: F Test: GLOMERULAR FILTRATION RATE; Value: > 60.0; Range: >32; Status: F Test: SODIUM LEVEL; Value: 143; Range: 136-145; Units: MEQ/L; Status: F Test: POTASSIUM SERUM; Value: 3.9; Range: 3.5-5.1; Units: MEQ/L; Status: F Test: CHLORIDE LEVEL; Value: 106; Range: 98-107; Units: MEQ/L; Status: F Test: CARBON DIOXIDE LEVEL; Value: 31; Range: 21-32; Units: MEQ/L; Status: F Test: ANION GAP; Value: 6; Range: 8-16; Abnormal: Below low normal; Units: MEQ/L; Status: F Test: CALCIUM LEVEL; Value: 9.0; Range: 8.8-10.2; Units: MG/DL; Status: F Test Note: ; Units are mL/min/1.73 m2 Chronic Kidney Disease Staging per NKF: Stage I & II GFR >=60 Normal to Mildly Decreased Stage III GFR 30-59 Moderately Decreased Stage IV GFR 15-29 Severely Decreased Stage V GFR <15 Very Little GFR Left ESRD GFR <15 on DATA SUPPORT SPECIALIST Lab Order: CIP; [facility] 11/06/16 12:59 Test: CPK CREATINE PHOSPHOKINASE; Value: 75; Range: 26-192; Units: U/L; Status: F Test: CK-MB VALUE MASS; Value: 3.4; Range: 0.0-3.6; Units: NG/ML; Status: F Test: MB/CK RELATIVE INDEX; Value: 4.53; Range: < OR =4; Abnormal: Above high normal; Status: F Test Note: ; DIAGNOSIS CRITERIA MMB ng/ml Relative Index (RI) NON-AMI < or = 5 N/A [place] > 5 < or = 4 AMI > 5 > 4 Lab Order: Troponin; 11/06/16 12:59 Test: TROPONIN I; Value: 0.02; Range: < 0.10; Units: NG/ML; Status: F Test Note: ; Troponin I Reference Interval for RegaloCard LOCI: 99th Percentile= 0.00-0.045 ng/ml Risk Stratification: <= 0.10 ng/ml Decreased Risk for Adverse Clinical Events. 0.10-1.50 ng/ml Increased Risk for Adverse Clinical Events. Evaluation of additional criterion and/or repeat testing in 2-6 hours is suggested to rule out myocardial damage. >= 1.50 ng/ml Indicative of Myocardial Injury. Lab Order: Type & Screen; [facility]11/06/16 12:59 Test: BLOOD TYPE; Value: O POS; Status: F Test: AB SCREEN (INDIRECT KENYON)VIS; Value: NEGATIVE; Status: F Lab Order: Pt & Aptt; SPEC'M 11/06/16 12:59 Test: PROTHROMBIN TIME; Value: 13.3; Range: 12.3-14.5; Units: SECONDS; Status: F Test: INR; Value: 1.00; Status: F Test: PARTIAL THROMBOPLASTIN TIME; Value: 32.0; Range: 26.6-37.1; Units: SECONDS; Status: F Test Note: ; THERAPUTIC HUMAN INR VALUES INDICATIONS NORMAL RANGES PROPHYLAXIS/TREATMENT OF: VENOUS THROMBOSIS 2.0-3.0 PULMONARY EMBOLISM 2.0-3.0 PREVENTION OF SYSTEMIC EMBOLISM FROM: TISSUE HEART VALVES 2.0-3.0 ACUTE MYOCARDIAL INFARCTION 2.0-3.0 VALVULAR HEART DISEASE 2.0-3.0 ATRIAL FIBRILLATION 2.0-3.0 MECHANICAL VALVES(HIGH RISK) 2.5-3.5 RECURRENT MYOCARDIAL INFARCTION 2.5-3.5 Radiology Order: Hip,AP,LAT to include Pelvis Test: Hip,AP,LAT to include Pelvis REASON FOR EXAMINATION: Trauma; AP PELVIS AND LEFT HIP: 11/06/2016.; ; Clinical history: Trauma.; ; Three views provided. Bones are demineralized. There are degenerative changes; lumbar spine and SI joints. There is an intertrochanteric comminuted fracture; with varus deformity of the left hip. No subluxation or dislocation of the left; hip. No other fracture.; ; Unreviewed; Radiology Order: Chest, 1 View Test: Chest, 1 View REASON FOR EXAMINATION: pre-op; AP PORTABLE CHEST: 11/06/2016.; ; Comparison: Seated AP portable chest compared to 05/16/2011 chest x-ray.; Lungs are less well inflated than on the previous study with slight elevation; right diaphragm. CP angles sharply defined. Some underlying fibrosis and apical; scarring. No pulmonary edema or acute infiltrate. There is pulmonary artery; hypertension. Left ventricular configuration of the heart again seen. The aorta; is calcified at the arch, mildly tortuous. No widening of mediastinum. Bones; demineralized.; ; Impression:; 1. Some underlying COPD, fibrosis and pulmonary artery hypertension with left; ventricular configuration of the heart but no edema, infiltrate or effusion.; ; Unreviewed; Outcome: 14:51 Decision to Hospitalize by Provider. 18:04 Discharge Assessment: patient administered narcotics - yes. Patient was admitted to the [address] or transferred to another facility. The following High Risk Discharge criteria are identified: None. Admitted to Med/Surg accompanied by tech, via stretcher, with chart. Condition: stable. No special radiology studies were completed. Property :Personal belongings accompany Pt. 18:09 Patient left the ED. [facility] Signatures: Dispatcher [employer] EDMS Tex Calvert MD MD pc Murray, Denise, Api Architect Unit deg [place], RN RN Rimma Miller Marlynn mm15 Jalen Thapa PCA PCA jrd Crane, Kelsi,RN RN [facility] Corrections: (The following items were deleted from the chart) 16:58 16:47 BP 171 / 76 [place] [address] MTDD
[2016-11-06] MEDS ORDERED: NS 1,000 ML IV SCH (19:00)
[2016-11-06] MEDS ORDERED: LIDOCAINE 2% INJ 100 MG/5 ML SDV (FOR ANES.) As Ordered ONE (20:10)
[2016-11-06] MEDS ORDERED: MIDAZOLAM INJ 2 MG/2 ML VIAL (J2250) As Ordered ONE (20:10)
[2016-11-06] MEDS ORDERED: PROPOFOL 200 MG/20 ML VIAL As Ordered ONE (20:10)
[2016-11-06] MEDS ORDERED: fentaNYL 100 MCG/2 ML INJECTION (J3010) As Ordered ONE ×2 (20:11→22:28)
[2016-11-06] MEDS ORDERED: ceFAZolin 1GM INJ (J0690) As Ordered ONE ×2 (20:24→21:08)
[2016-11-06] MEDS: fentaNYL 100 MCG/2 ML INJECTION (J3010) IV PRN ×4 (22:35→22:50)
[2016-11-06] MEDS ORDERED: LR 1,000 ML IV SCH (23:00)
[2016-11-06] MEDS ORDERED: PERCOCET 5MG/325MG TAB As Ordered ONE (23:04)
[2016-11-06] MEDS ORDERED: MORPHINE 10 MG/ML 1ML VIAL As Ordered ONE (23:04)
[2016-11-06] MEDS: MORPHINE 2 MG/ML 1ML SYRINGE IV PRN ×4 (23:08→23:48)
[2016-11-07] VITALS (11 sets, daily range): BP systolic 106–153; BP diastolic 53–76
[2016-11-07] MEDS: ASPIRIN 81 MG CHEW TABLET PO SCH ×2 (00:35→20:08)
[2016-11-07] MEDS: SIMVASTATIN 20 MG TAB PO SCH ×2 (00:36→20:08)
[2016-11-07] MEDS: ALLOPURINOL 100 MG TAB PO SCH ×3 (00:36→20:09)
[2016-11-07] MEDS: BRIMONIDINE 0.1% OPHTH SOLN 5 ML OU SCH ×3 (00:36→20:09)
[2016-11-07] MEDS: PANTOPRAZOLE 40MG TAB (PROTONIX) PO SCH ×3 (00:36→20:08)
[2016-11-07] MEDS: ATENOLOL 12.5MG PER 1/2 TABLET PO SCH ×2 (00:36→20:09)
[2016-11-07] MEDS ORDERED: PERCOCET 5MG/325MG TAB PO PRN (04:00)
[2016-11-07] MEDS ORDERED: ONDANSETRON 4 MG TAB (S0181) PO PRN ×2 (04:00→06:30)
--- NOTE | 2016-11-07 06:29 | ECGEPIP ---
Stationary ECG Study [facility] - ED Test Date: 2016-11-06 Pat Name: CHAR COX Department: Room: [place] [address] Gender: F Team Supervisor: temi : 1930 Requested By: Tex Florez Order Number: [id number] Reading MD: Lenny Currie Measurements Intervals [place] Rate: 62 P: 88 MN: 197 QRS: -40 QRSD: 145 T: 128 QT: 448 QTc: 456 Interpretive Statements SINUS RHYTHM MARKED LEFT AXIS DEVIATION LEFT BUNDLE BRANCH BLOCK NO OLD ECG FOR COMPARISON Electronically Signed On 11-07-2016 6:28:48 EST by Lenny Currie
[2016-11-07] MEDS ORDERED: ACETAMINOPHEN TAB 650MG DOSE (2X325MG) PO PRN (06:30)
[2016-11-07] MEDS: VITAMIN D 1,000 INTERNATIONAL UNITS TABLET PO SCH (09:09)
[2016-11-07] MEDS: MOM 30ML SUSPENSION UDC PO SCH (09:09)
[2016-11-07] MEDS: MIRALAX *UNIT DOSE* 17GM PACKET PO SCH (09:09)
[2016-11-07] MEDS: SENOKOT S TAB PO SCH ×2 (09:09→20:08)
[2016-11-07] MEDS ORDERED: NALOXONE INJ 0.4 MG/1 ML VIAL (J2310) IV STA ×2 (11:54→12:22)
[2016-11-07 12:05] LABS: MEAN CORPUSCULAR HEMOGLOBIN 33.4 pg (27.0-33.0); MEAN CORPUSCULAR HGB CONC 31.9 g/dl (32.0-36.5); MEAN CORPUSCULAR VOLUME 104.7 fl (80.0-96.0); RED CELL DISTRIBUTION WIDTH 13.7 % (11.5-14.5); WHITE BLOOD COUNT 9.6 K/mm3 (4.0-10.0)
[2016-11-07 12:14] LABS: ABG BASE EXCESS 3.2 (-2.0-2.0); ABG HCO3 30.2 MEQ/L (22.0-26.0); ABG PARTIAL PRESSURE O2 130.3 mmHg (75.0-100.0); ABG STANDARD HCO3 27.3 MEQ/L (22.0-26.0); ABG TOTAL CO2 32.1 MEQ/L (23.0-31.0); ABG pH (ARTERIAL) 7.311 UNITS (7.350-7.450)
[2016-11-07 12:21] LABS: ABG PARTIAL PRESSURE CO2 61.2 mmHg (35.0-45.0)
[2016-11-07 12:26] LABS: ANION GAP 6 MEQ/L (8-16); BLOOD UREA NITROGEN 20 MG/DL (7-18); CARBON DIOXIDE LEVEL 32 MEQ/L (21-32); CHLORIDE LEVEL 108 MEQ/L (98-107); CREATININE FOR GFR 0.92 MG/DL (0.55-1.02); GLOMERULAR FILTRATION RATE > 60.0 (>32); GLUCOSE, FASTING 142 MG/DL (83-110); POTASSIUM SERUM 4.2 MEQ/L (3.5-5.1); SODIUM LEVEL 146 MEQ/L (136-145)
--- NOTE | 2016-11-07 12:47 | IPN ---
DATE OF SERVICE: 11/07/2016 SUBJECTIVE: The patient is lethargic and tired, very difficult to arouse. OBJECTIVE: VITAL SIGNS: Temperature 96.6, pulse 80, respiratory rate 18, blood pressure 108/54, oxygen saturation 100% on 2 liters. GENERAL: She is a very frail, small female laying in bed sleeping deeply, with a decreased respiratory rate. She is extremely difficult to arouse. HEENT: She has pinpoint pupils, dry mucous membranes, slow deep breaths. CARDIOVASCULAR EXAMINATION: S1, S2. Regular. RESPIRATORY EXAMINATION: Fairly clear. ABDOMINAL EXAMINATION: Benign. EXTREMITIES: Her left hip dressing is clean, dry and intact. No clubbing, cyanosis or edema. LABORATORY STUDIES: Her laboratories from this morning are currently pending. She has two sets of cardiac enzymes, which are negative. Arterial blood gas was checked stat, which revealed a pH 7.3 pCO2 61.2 and a pO2 130.3. No new imaging. ASSESSMENT AND PLAN: This is an 86-year-old female postoperative day one for a left hip fracture after mechanical fall. PROBLEMS: 1. Acute pulmonary insufficiency following surgery Patient is likely CO2 retaining. She had received intravenous (IV) morphine and Percocet yesterday evening, as well as by mouth Percocet this morning. She is given 0.1 mg of IV Narcan and immediately wakes up. Upon awakening, she is fully oriented. I will provide her with additional Narcan. Will discontinue opiates. Monitor respiratory status very closely over the next several hours. 2. Left hip fracture status post mechanical fall and repair. Orthopedic surgery is greatly appreciated. Once again, we are discontinuing her narcotics. 3. Hypertension. Well controlled. She is on atenolol. 4. Gout. She is on allopurinol. 5. Osteoporosis. Patient is on vitamin D supplementation. 6. Dyslipidemia. She is on a statin. 7. Gastroesophageal reflux disease. She is on a proton pump inhibitor (PPI). 8. Deep venous thrombosis (DVT) prophylaxis. As per orthopedic surgery. She is on Coumadin. DISPOSITION: We will continue to monitor the patient closely. Monitor for respiratory status over the next several hours. [facility]
--- NOTE | 2016-11-07 13:29 | REP ---
LEFT HIP C-ARM FLUOROSCOPY: 11/06/2016. Four images from C-arm fluoroscopy provided to Dr. Mcarthur of the orthopedic division for ORIF of a comminuted intertrochanteric fracture. The four views show a intramedullary eleanor with threaded femoral nail transfixing the comminuted intertrochanteric fracture with essentially anatomic orientation of the distal metaphysis of the femur shows a single screw transversely fixing the distal tip of the intramedullary eleanor. Fluoroscopy time: 119 seconds. Signed by Valente Melara MD 11/07/2016 07:19 P
--- NOTE | 2016-11-07 15:37 | RO ---
PREPROCEDURE DIAGNOSIS: Left intertrochanteric proximal femur fracture. POSTPROCEDURE DIAGNOSIS: Left intertrochanteric proximal femur fracture. PROCEDURE: Left hip intertrochanteric fixation with a Gamma nail. SURGEON: Dr. Cecil Mcarthur SLURRY CONTROL OPERATOR HELPER: Carolee Aguero ANESTHESIA: ANESTHESIOLOGIST: Dr. Calhoun BLOOD LOSS: Less than 100 mL. REPLACED FLUIDS: 500 crystalloid. COMPLICATIONS: None. INDICATIONS: An 86-year-old female with a displaced left intertrochanteric hip fracture. After discussion of the risks and benefits of operative intervention, she elected to proceed. DESCRIPTION OF PROCEDURE: The patient was met in the preoperative holding area, the operative site was initialed, IV access was verified, consent was verified. She was taken to the operative suite where she was prepped and draped in the usual sterile fashion in the supine position on the fracture table. A preoperative fracture reduction was performed with traction and adduction. Once this was complete, we prepped and draped her sterilely and made a longitudinal incision just proximal to the greater trochanter. We used a curved awl to enter the proximal femur. The position of the awl was verified in orthogonal planes fluoroscopically, placed a ball-tip guidewire down the center of the femur and measured a total nail length of 38 cm. We reamed the proximal femur and then successfully reamed the canal to a size 11. We chose a 38 cm 10 mm Gamma nail, placed it down the center of the femur and affixed it proximally with a hip screw, about 105 mm in length with good center-center location of the femoral head. We used the compression mechanism to close down any residual fracture diastasis and fixed it in place with a proximal set screw. We fixed it distally with one interlock screw in the oblong hole to allow some compression in the future as the fracture settles. The wounds were irrigated copiously and closed sterilely. She was dressed sterilely. She was awakened and moved to her postoperative recovery bed and transferred to the recovery room in stable condition. POSTOPERATIVE PLAN: Slow return to weightbearing status with toe-touch weightbearing to start.
[2016-11-07] MEDS: ACETAMINOPHEN TAB 650MG DOSE (2X325MG) PO PRN ×2 (16:57→22:21)
[2016-11-07] MEDS ORDERED: WARFARIN SOD 5 MG TAB PO ONE (17:00)
[2016-11-08] MEDS: ACETAMINOPHEN TAB 650MG DOSE (2X325MG) PO PRN ×4 (03:47→21:55)
[2016-11-08 06:00] VITALS: BP 120/55
[2016-11-08 06:36] LABS: MEAN CORPUSCULAR HEMOGLOBIN 33.5 pg (27.0-33.0); MEAN CORPUSCULAR HGB CONC 32.3 g/dl (32.0-36.5); MEAN CORPUSCULAR VOLUME 103.9 fl (80.0-96.0); RED CELL DISTRIBUTION WIDTH 13.8 % (11.5-14.5); WHITE BLOOD COUNT 8.6 K/mm3 (4.0-10.0)
[2016-11-08 06:43] LABS: INR 1.38
[2016-11-08 06:48] LABS: ANION GAP 4 MEQ/L (8-16); BLOOD UREA NITROGEN 28 MG/DL (7-18); CALCIUM LEVEL 8.5 MG/DL (8.8-10.2); CARBON DIOXIDE LEVEL 34 MEQ/L (21-32); CHLORIDE LEVEL 106 MEQ/L (98-107); GLOMERULAR FILTRATION RATE > 60.0 (>32); GLUCOSE, FASTING 113 MG/DL (83-110); POTASSIUM SERUM 4.6 MEQ/L (3.5-5.1); SODIUM LEVEL 144 MEQ/L (136-145)
[2016-11-08] MEDS: ALLOPURINOL 100 MG TAB PO SCH ×2 (08:50→21:52)
[2016-11-08] MEDS: SENOKOT S TAB PO SCH ×2 (08:50→21:52)
[2016-11-08] MEDS: MOM 30ML SUSPENSION UDC PO SCH (08:50)
[2016-11-08] MEDS: VITAMIN D 1,000 INTERNATIONAL UNITS TABLET PO SCH (08:50)
[2016-11-08] MEDS: MIRALAX *UNIT DOSE* 17GM PACKET PO SCH (08:50)
[2016-11-08] MEDS: PANTOPRAZOLE 40MG TAB (PROTONIX) PO SCH ×2 (08:50→21:52)
[2016-11-08] MEDS: BRIMONIDINE 0.1% OPHTH SOLN 5 ML OU SCH ×2 (08:51→21:52)
--- NOTE | 2016-11-08 12:22 | IPN ---
DATE: 11/08/2016 SUBJECTIVE: Today the patient tells me that she feels tired and weak, but otherwise she is oriented to person, place, time, and situation. She denies chest pain, shortness of breath, fevers, chills, nausea, vomiting. OBJECTIVE: VITAL SIGNS: Temperature 98.4, pulse 57, respiratory rate 18, blood pressure 120/55, oxygen saturation 99% on two liters nasal cannula. GENERAL: She is a frail, elderly, female laying in bed. She does not appear to be in any acute distress. HEENT: Cranial nerves II-XII are grossly intact. She has moist mucous membranes. No elevation in her central venous pressure (CVP). CARDIOVASCULAR EXAM: S1, S2, regular. She is not tachycardic. RESPIRATORY EXAM: Fairly clear. She is kyphotic. ABDOMINAL EXAM: Benign. EXTREMITIES: No clubbing, cyanosis, or edema. Her left hip dressing is clean, dry, and intact. LABORATORY STUDIES: WBC 8.6, hemoglobin 7.4, down from 8.4 yesterday, hematocrit 24, platelet count 104. Chemistry panel: Sodium 144, potassium 4.6, chloride 106, bicarbonate 34, BUN 28, creatinine 0.8. No new imaging. ASSESSMENT AND PLAN: This is an 86-year-old female, postoperative day #2 for left hip fracture after a mechanical fall. 1. Postoperative acute pulmonary insufficiency. The patient did respond to Narcan. Since that time she has remained awake, alert, and oriented. 2. Left hip fracture status post mechanical repair. Orthopedic surgery's help is greatly appreciated. They are covering her pain medication and deep venous thrombosis (DVT) prophylaxis. The patient is working with physical therapy. However, patient was quite lethargic yesterday and today she likely will receive a blood transfusion so they have not adequately been able to evaluate her at this time. 3. Acute blood loss anemia postoperatively. The patient did have an acute drop in her hemoglobin and hematocrit which is not surprising given her advanced age and the surgical procedure she underwent. She will receive two units of packed red blood cells (PRBCs) today. 4. Hypertension. She is controlled on atenolol. 5. Gout. She is on allopurinol. 6. Osteoporosis. She is on vitamin D supplementation. 7. Dyslipidemia. She is on a statin. 8. Gastroesophageal reflux disease. She is on a proton pump inhibitor (PPI). 9. Deep venous thrombosis (DVT) prophylaxis. She is on Coumadin as per orthopedic surgery. DISPOSITION: Will continue to follow her very closely. She will likely require acute versus subacute rehabilitation based on her slow progress.
[2016-11-08 14:01] VITALS: BP 125/78
[2016-11-08] MEDS ORDERED: WARFARIN SOD 2.5 MG TAB PO ONE (17:00)
--- NOTE | 2016-11-08 19:10 | EDDOCDS ---
Nurse's Notes [facility] Name: Aliyah Washbrun Age: 86 yrs Sex: Female : 1930 Arrival Date: 11/06/2016 Time: 12:25 Bed 14 Private MD: Diagnosis: Fall from chair;Nondisplaced intertrochanteric fracture of left femur Presentation: 11/06 12:37 Presenting complaint: EMS states: Pt fell from chair to floor with injury to left hip. kc3 No LOC or head injury reported. Left left noted to be shortened and rotated out. Suicide/Homicide risk assessment- the patient denies having any suicidal and/or homicidal ideations and does not present with any other emotional, behavioral or mental health complaints. Status: Patient is not a furniture servicer or dependent. Transition of care: patient was not received from another setting of care. 12:37 Acuity: ELENI Level 3 kc3 12:37 Method Of Arrival: Ambulance kc3 13:15 Adult Sepsis Screening: The patient does not have new or worsening altered mentation. kc3 Patient's respiratory rate is less than 22. Systolic blood pressure is greater than 100. Patient has a qSOFA score of 0- Negative Sepsis Screen. Triage Assessment: 13:13 General: Appears uncomfortable, Behavior is appropriate for age, cooperative. Pain: kc3 Location: left hip. The patient is triaged at the bedside. See Assessment in Nurses Notes section of ED record. Neurological: Level of Consciousness is awake, alert, obeys commands, Oriented to person, place, time. Cardiovascular: Pulses are palpable in left dorsalis pedis artery. Respiratory: Respiratory effort is even, unlabored. Derm: Skin is normal. Musculoskeletal: Range of motion limited in left hip left leg noted to be shortened and externally rotated. Injury Description: pt fell. Historical: - Allergies: Dexamethasone Sodium Phosphate (Hives, Rash); Depo-Medrol (Hives, Rash); PENICILLINS (Rash); IZABELLA INHIBITORS (Rash); Augmentin (Rash); carvedilol (Rash); ANGIOTENSIN RECEPTOR ANTAGONIST (Rash); Clindamycin (Rash); - Home Meds: 1. atenolol 25 mg oral tab once daily 2. Protonix 40 mg Oral TbEC 1 tab 2 times per day 3. simvastatin 20 mg Oral tab 1 tab once daily 4. allopurinol 100 mg Oral tab 1 tab 2 times per day 5. Colace 100 mg oral cap 1 cap 2 times per day 6. tramadol 50 mg oral tab every 6 hours as needed 7. Calcium 600mg twice a day 8. aspirin 81 mg Oral chew 1 tab once daily 9. Vitamin D Oral 400 unit daily - PMHx: GERD; Gout; Hypercholesterolemia; Hypertension; Osteoporosis; Compression fractures; Squamous cell carcinoma; Diverticulosis; UTI; Left BBB; Vertigo; Anemia; - PSHx: Hysterectomy; bilateral breast reduction; - The history from nurses notes was reviewed: and I agree with what is documented. - Social history: Smoking status: Patient states was never smoker of tobacco. No barriers to communication noted, The patient speaks fluent Hungarian, Speaks appropriately for age. - : The pt / caregiver states he / she is not on anticoagulants. Home medication list is obtained from the patient. - Hospitalizations: : No recent hospitalization is reported. - Exposure Risk Screening:: None identified. - Immunization history:: All immunizations up-to-date. - Family history: Not pertinent. - Social history:: the patient is a non-smoker, the patient does not drink alcohol. Screenin:15 Screening information is obtained from the patient. Fall risk: At risk due to prior kc3 history of falls, The following interventions are performed due to a positive Fall Risk Screen: Fall Risk is added to Special Handling on the patient Summary Screen. A Fall Risk Bracelet was applied to the patient. Side Rails are placed in the up position. A Call Topete is given with instruction to call for help when getting out of bed. Fall Alert bracelet is placed on the patient. Assistance ADL's: requires no assistance with activities of daily living. Abuse/DV Screen: The patient / caregiver reports he/she is: not in a situation that causes fear, pain or injury. Nutritional screening: No deficits noted. home support is adequate. 18:05 Advance Directives: Currently, there is a health care proxy, Nayana Michaud, kc3 daughter. Assessment: 13:15 General: See triage noted for initial assessment. . kc3 14:00 General: Appears in no apparent distress, comfortable, Behavior is appropriate for age, kc3 cooperative. Pain: Location: left hip. Neurological: No deficits noted. Respiratory: Respiratory effort is even, unlabored, Respiratory pattern is regular, symmetrical. Derm: Skin is pink, warm & dry. Family at bedside. 15:17 General: Appears in no apparent distress, comfortable, Behavior is appropriate for age, kc3 cooperative, Pt reports not wanting any more pain medication at this time. . Pain: Location: left hip. Neurological: No deficits noted. Respiratory: Respiratory effort is even, unlabored. Derm: Skin is pink, warm & dry. 16:26 General: Appears in no apparent distress, comfortable, Behavior is appropriate for age, kc3 cooperative, Pt requesting pain medication at this time. . 17:20 General: Appears in no apparent distress, comfortable, Behavior is appropriate for age, kc3 cooperative. Pain: Location: left hip. Neurological: No deficits noted. Respiratory: Respiratory effort is even, unlabored, Respiratory pattern is regular, symmetrical. Derm: Skin is pink, warm & dry. 18:03 General: Appears in no apparent distress, comfortable, Behavior is appropriate for age, kc3 cooperative. Pain: Location: left hip Pain currently is 8 out of 10 on a pain scale. Neurological: Level of Consciousness is awake, alert, obeys commands, Oriented to person, place, time. Respiratory: Respiratory effort is even, unlabored. Derm: Skin is pink, warm & dry. Vital Signs: 12:45 BP 178 / 74 LA Sitting (auto/reg); Pulse 77; Resp 18; Temp 95.5; Pulse Ox 99% on R/A; jrd Weight 51.71 kg (R); Height 57 in. (144.78 cm); 13:37 BP 193 / 82 (auto/); kc3 13:38 Pulse 64 MON; Pulse Ox 97% ; kc3 13:52 BP 194 / 81 (auto/); kc3 13:52 Pulse 68 MON; Pulse Ox 98% ; kc3 14:07 BP 173 / 70 (auto/); kc3 14:07 Pulse 66 MON; Pulse Ox 97% ; kc3 14:22 BP 184 / 77 (auto/); kc3 14:22 Pulse 68 MON; Temp 96.9(O); Pulse Ox 96% ; kc3 14:36 Pulse 64 MON; Pulse Ox 96% ; kc3 14:37 BP 162 / 58 (auto/); kc3 14:51 Pulse 66 MON; Pulse Ox 97% ; kc3 14:52 BP 164 / 70 (auto/); kc3 15:06 Pulse 64 MON; Pulse Ox 95% ; kc3 15:07 BP 160 / 71 (auto/); kc3 15:16 BP 160 / 71; kc3 15:22 BP 154 / 69 (auto/); kc3 15:22 Pulse 64 MON; Pulse Ox 94% ; kc3 15:37 BP 172 / 67 (auto/); kc3 15:37 Pulse 66 MON; Pulse Ox 98% ; kc3 15:51 Pulse 70 MON; Pulse Ox 100% ; kc3 15:52 BP 172 / 72 (auto/); kc3 16:07 Pulse 68 MON; Pulse Ox 98% ; kc3 16:07 BP 179 / 97 (auto/); kc3 16:18 Pulse 66 MON; Pulse Ox 96% ; kc3 16:20 BP 164 / 71 (auto/); kc3 16:36 Pulse 68 MON; Pulse Ox 95% ; kc3 16:37 BP 171 / 76 (auto/); kc3 16:57 BP 171 / 76; Pain 9/10; kc3 17:06 Pulse 68 MON; Pulse Ox 96% ; kc3 17:07 BP 154 / 66 (auto/); kc3 17:37 BP 174 / 69 (auto/); kc3 17:37 Pulse 66 MON; Pulse Ox 96% ; kc3 18:02 BP 146 / 71 RA Sitting (auto/reg); Pulse 74; Resp 18; Temp 96.6(O); Pulse Ox 97% on jrd R/A; Pain 8/10; 18:06 Pain 8/10; kc3 12:45 Body Mass Index 24.67 (51.71 kg, 144.78 cm) [facility] Vitals: 13:15 Log In Time N/A - ambulance arrival. [facility] ED Course: 12:26 Patient visited by Elyse Ruiz, Manager Strategy. deg 12:26 Nandini Vickers,RN is Primary Nurse. deg 12:26 Patient moved to Waiting deg 12:26 Patient moved to 14 deg 12:41 Triage Initiated 3 12:43 Tex Calvert MD is Attending Physician. pc 12:45 Pt greeted and oriented to ED. Patient advised of names of staff involved in care, jrd location of call topete, wait times and NPO status. Patient has correct armband on for positive identification. Placed in gown. Bed in low position. Call light in reach. Side rails up X2. night clerk auditor on. Pulse ox on. NIBP on. 12:47 Patient visited by Jalen Thapa PCA. jrd 12:50 Patient visited by Tex Calvert MD. pc 13:16 Patient visited by Nandini Vickers,RN. kc3 13:16 The patient / caregiver is instructed regarding the plan of care and ED course. kc3 13:16 Inserted saline lock: 20 gauge in left antecubital area and blood collected. The kc3 patient tolerated the procedure well. 13:29 Pt & Aptt Sent. kc3 13:29 Type & Screen Sent. kc3 13:29 Troponin Sent. kc3 13:29 CIP Sent. kc3 13:29 MED Profile Sent. kc3 13:29 CBC with Diff Sent. kc3 13:39 Patient visited by Rimma Rojo. sew 13:39 EKG done. (by ED staff). Reviewed by Tex Calvert MD. sew 13:43 [facility] Payment Agreement was scanned into Zumper and attached to record. mm15 14:12 Patient visited by Nandini Vickers,RN. kc3 14:47 Patient visited by Nandini Vickers,CHARLENE. kc3 14:51 Donnie Gallo is Hospitalizing Provider. pc 14:59 Hip,AP,LAT to include Pelvis Returned. EDMS 14:59 Chest, 1 View Returned. EDMS 15:30 Patient moved to Admit Hold dy 15:30 Patient moved to 14 dy 18:03 Patient visited by Jalen Thapa PCA. jrd 18:04 No procedures done that require assistance. kc3 11/07 18:06 PCR was scanned into Zumper and attached to record. kf3 11/08 10:19 ECG/EKG was scanned into Zumper and attached to record. gb 10:19 PCR was scanned into Zumper and attached to record. gb Administered Medications: 11/06 13:05 Drug: morphine 2 mg [morphine 2 mg/mL intravenous cartridge (1 mL)] Route: IVP; Site: kc3 left antecubital; 13:05 Drug: Ondansetron 4 mg [ondansetron HCl 2 mg/mL intravenous solution (2 mL)] Route: kc3 IVP; Site: left antecubital; 13:56 Drug: NS 0.9% 1000 ml [sodium chloride 0.9 % intravenous solution] Route: IV; Rate: 100 kc3 mL/hr; Site: left antecubital; 14:55 Drug: morphine 2 mg [morphine 2 mg/mL intravenous cartridge (1 mL)] Route: IVP; Site: kc3 left antecubital; 15:16 Follow up: BP 160 / 71; Pt reports does not want any more pain medication at this time. kc3 16:26 Drug: morphine 2 mg [morphine 2 mg/mL intravenous cartridge (1 mL)] Route: IVP; Site: kc3 left antecubital; 16:57 Follow up: BP 171 / 76; Pain 9/10 Adult kc3 16:58 Drug: morphine 2 mg [morphine 2 mg/mL intravenous cartridge (1 mL)] Route: IVP; Site: kc3 left antecubital; 18:06 Follow up: Pain 8 Adult kc3 Intake: Order Results: Lab Order: CBC with Diff; SPEC'M 11/06/16 12:59 Test: WHITE BLOOD COUNT; Value: 4.5; Range: 4.0-10.0; Units: K/mm3; Status: F Test: RED BLOOD COUNT; Value: 3.51; Range: 4.00-5.40; Abnormal: Below low normal; Units: M/mm3; Status: F Test: HEMOGLOBIN; Value: 11.5; Range: 12.0-16.0; Abnormal: Below low normal; Units: g/dl; Status: F Test: HEMATOCRIT; Value: 36.0; Range: 36.0-47.0; Units: %; Status: F Test: MEAN CORPUSCULAR VOLUME; Value: 102.5; Range: 80.0-96.0; Abnormal: Above high normal; Units: fl; Status: F Test: MEAN CORPUSCULAR HEMOGLOBIN; Value: 32.8; Range: 27.0-33.0; Units: pg; Status: F Test: MEAN CORPUSCULAR HGB CONC; Value: 32.0; Range: 32.0-36.5; Units: g/dl; Status: F Test: RED CELL DISTRIBUTION WIDTH; Value: 13.2; Range: 11.5-14.5; Units: %; Status: F Test: PLATELET COUNT, AUTOMATED; Value: 139; Range: 150-450; Abnormal: Below low normal; Units: k/mm3; Status: F Test: NEUTROPHILS %; Value: 61.4; Range: 36.0-66.0; Units: %; Status: F Test: LYMPH %; Value: 31.4; Range: 24.0-44.0; Units: %; Status: F Test: MONO %; Value: 3.1; Range: 0.0-5.0; Units: %; Status: F Test: EOS %; Value: 1.2; Range: 0.0-3.0; Units: %; Status: F Test: BASO %; Value: 0.4; Range: 0.0-1.0; Units: %; Status: F Test: LARGE UNSTAINED CELL %; Value: 2.5; Range: 0.0-4.0; Units: %; Status: F Test: NEUTROPHILS #; Value: 2.7; Range: 1.8-7.7; Units: K/mm3; Status: F Test: LYMPH #; Value: 1.4; Range: 1.5-4.5; Abnormal: Below low normal; Units: K/mm3; Status: F Test: MONO #; Value: 0.1; Range: 0.0-0.8; Units: K/mm3; Status: F Test: EOS #; Value: 0.1; Range: 0.0-0.50; Units: K/mm3; Status: F Test: BASO #; Value: 0.0; Range: 0.0-0.2; Units: K/mm3; Status: F Test: LARGE UNSTAINED CELL #; Value: 0.1; Range: 0.0-0.4; Units: K/mm3; Status: F Lab Order: MED Profile; [facility] 11/06/16 12:59 Test: GLUCOSE, FASTING; Value: 169; Range: 83-110; Abnormal: Above high normal; Units: MG/DL; Status: F Test: BLOOD UREA NITROGEN; Value: 27; Range: 7-18; Abnormal: Above high normal; Units: MG/DL; Status: F Test: CREATININE FOR GFR; Value: 0.91; Range: 0.55-1.02; Units: MG/DL; Status: F Test: GLOMERULAR FILTRATION RATE; Value: > 60.0; Range: >32; Status: F Test: SODIUM LEVEL; Value: 143; Range: 136-145; Units: MEQ/L; Status: F Test: POTASSIUM SERUM; Value: 3.9; Range: 3.5-5.1; Units: MEQ/L; Status: F Test: CHLORIDE LEVEL; Value: 106; Range: 98-107; Units: MEQ/L; Status: F Test: CARBON DIOXIDE LEVEL; Value: 31; Range: 21-32; Units: MEQ/L; Status: F Test: ANION GAP; Value: 6; Range: 8-16; Abnormal: Below low normal; Units: MEQ/L; Status: F Test: CALCIUM LEVEL; Value: 9.0; Range: 8.8-10.2; Units: MG/DL; Status: F Test Note: ; Units are mL/min/1.73 m2 Chronic Kidney Disease Staging per NKF: Stage I & II GFR >=60 Normal to Mildly Decreased Stage III GFR 30-59 Moderately Decreased Stage IV GFR 15-29 Severely Decreased Stage V GFR <15 Very Little GFR Left ESRD GFR <15 on CARDING MACHINE OPERATOR Lab Order: CIP; SPEC'M 11/06/16 12:59 Test: CPK CREATINE PHOSPHOKINASE; Value: 75; Range: 26-192; Units: U/L; Status: F Test: CK-MB VALUE MASS; Value: 3.4; Range: 0.0-3.6; Units: NG/ML; Status: F Test: MB/CK RELATIVE INDEX; Value: 4.53; Range: < OR =4; Abnormal: Above high normal; Status: F Test Note: ; DIAGNOSIS CRITERIA MMB ng/ml Relative Index (RI) NON-AMI < or = 5 N/A [place] > 5 < or = 4 AMI > 5 > 4 Lab Order: Troponin; SPEC'M 11/06/16 12:59 Test: TROPONIN I; Value: 0.02; Range: < 0.10; Units: NG/ML; Status: F Test Note: ; Troponin I Reference Interval for Tag & See LOCI: 99th Percentile= 0.00-0.045 ng/ml Risk Stratification: <= 0.10 ng/ml Decreased Risk for Adverse Clinical Events. 0.10-1.50 ng/ml Increased Risk for Adverse Clinical Events. Evaluation of additional criterion and/or repeat testing in 2-6 hours is suggested to rule out myocardial damage. >= 1.50 ng/ml Indicative of Myocardial Injury. Lab Order: Type & Screen; SPEC'M 11/06/16 12:59 Test: BLOOD TYPE; Value: O POS; Status: F Test: AB SCREEN (INDIRECT [place]EN[place])VIS; Value: NEGATIVE; Status: F Lab Order: Pt & Aptt; SPEC'M 11/06/16 12:59 Test: PROTHROMBIN TIME; Value: 13.3; Range: 12.3-14.5; Units: SECONDS; Status: F Test: INR; Value: 1.00; Status: F Test: PARTIAL THROMBOPLASTIN TIME; Value: 32.0; Range: 26.6-37.1; Units: SECONDS; Status: F Test Note: ; THERAPUTIC HUMAN INR VALUES INDICATIONS NORMAL RANGES PROPHYLAXIS/TREATMENT OF: VENOUS THROMBOSIS 2.0-3.0 PULMONARY EMBOLISM 2.0-3.0 PREVENTION OF SYSTEMIC EMBOLISM FROM: TISSUE HEART VALVES 2.0-3.0 ACUTE MYOCARDIAL INFARCTION 2.0-3.0 VALVULAR HEART DISEASE 2.0-3.0 ATRIAL FIBRILLATION 2.0-3.0 MECHANICAL VALVES(HIGH RISK) 2.5-3.5 RECURRENT MYOCARDIAL INFARCTION 2.5-3.5 Radiology Order: Hip,AP,LAT to include Pelvis Test: Hip,AP,LAT to include Pelvis REASON FOR EXAMINATION: Trauma; AP PELVIS AND LEFT HIP: 11/06/2016.; ; Clinical history: Trauma.; ; Three views provided. Bones are demineralized. There are degenerative changes; lumbar spine and SI joints. There is an intertrochanteric comminuted fracture; with varus deformity of the left hip. No subluxation or dislocation of the left; hip. No other fracture.; ; Unreviewed; Radiology Order: Chest, 1 View Test: Chest, 1 View REASON FOR EXAMINATION: pre-op; AP PORTABLE CHEST: 11/06/2016.; ; Comparison: Seated AP portable chest compared to 05/16/2011 chest x-ray.; Lungs are less well inflated than on the previous study with slight elevation; right diaphragm. CP angles sharply defined. Some underlying fibrosis and apical; scarring. No pulmonary edema or acute infiltrate. There is pulmonary artery; hypertension. Left ventricular configuration of the heart again seen. The aorta; is calcified at the arch, mildly tortuous. No widening of mediastinum. Bones; demineralized.; ; Impression:; 1. Some underlying COPD, fibrosis and pulmonary artery hypertension with left; ventricular configuration of the heart but no edema, infiltrate or effusion.; ; Unreviewed; Outcome: 14:51 Decision to Hospitalize by Provider. 18:04 Discharge Assessment: patient administered narcotics - yes. Patient was admitted to the [address] or transferred to another facility. The following High Risk Discharge criteria are identified: None. Admitted to Med/Surg accompanied by tech, via stretcher, with chart. Condition: stable. No special radiology studies were completed. Property :Personal belongings accompany Pt. 18:09 Patient left the ED. [facility] Signatures: Dispatcher [employer] EDMS Tex Calvert MD MD pc Murray, Denise, Manager Strategy Unit deg Colleen Brice, Reg Reg gb [place], RN RN dy Jamal Ewing, Reg Reg kf3 Rimma Rojo Marlynn mm15 Jalen Thapa, HANDHOLE MACHINE OPERATOR HANDHOLE MACHINE OPERATOR d Nandini Vickers,RN RN 3 Corrections: (The following items were deleted from the chart) 16:58 16:47 BP 171 / [address] [place] [id number] Chart Complete MTDD
--- NOTE | 2016-11-08 19:10 | EDDOCDS ---
Physician Documentation [facility] Name: Aliyah Washburn Age: 86 yrs Sex: Female : 1930 Arrival Date: 11/06/2016 Time: 12:25 Bed 14 Private MD: Disposition: 11/06 14:49 Critical Care: Critical care not applicable. pc Disposition: 11/06/16 14:51 Hospitalization ordered by Donnie Gallo for Inpatient Admission. Preliminary diagnosis are Fall from chair, Nondisplaced intertrochanteric fracture of left femur. - Bed requested for 5 [place]. - Status is Inpatient Admission. kc3 - Condition is Stable. - Problem is new. - Symptoms have improved. HPI: 12:51 This 86 yrs old Female presents to ER via Ambulance with complaints of Fall pc Injury. 12:51 The history is obtained from the patient. She slipped off her chair cushion she uses to pc boost herself at the dining table, landing on her left hip. She has pain in her groin and hip area. She denies hitting her head, LOC or any other injuries. At their worst, the symptoms were a 10 out of 10. In the emergency department, the symptoms are a 10 out of 10. The patient has not experienced similar symptoms in the past. The patient has been recently seen by their primary care provider, for a routine, regularly scheduled appointment. Historical: - Allergies: Dexamethasone Sodium Phosphate (Hives, Rash); Depo-Medrol (Hives, Rash); PENICILLINS (Rash); IZABELLA INHIBITORS (Rash); Augmentin (Rash); carvedilol (Rash); ANGIOTENSIN RECEPTOR ANTAGONIST (Rash); Clindamycin (Rash); - Home Meds: 1. atenolol 25 mg oral tab once daily 2. Protonix 40 mg Oral TbEC 1 tab 2 times per day 3. simvastatin 20 mg Oral tab 1 tab once daily 4. allopurinol 100 mg Oral tab 1 tab 2 times per day 5. Colace 100 mg oral cap 1 cap 2 times per day 6. tramadol 50 mg oral tab every 6 hours as needed 7. Calcium 600mg twice a day 8. aspirin 81 mg Oral chew 1 tab once daily 9. Vitamin D Oral 400 unit daily - PMHx: GERD; Gout; Hypercholesterolemia; Hypertension; Osteoporosis; Compression fractures; Squamous cell carcinoma; Diverticulosis; UTI; Left BBB; Vertigo; Anemia; - PSHx: Hysterectomy; bilateral breast reduction; - The history from nurses notes was reviewed: and I agree with what is documented. - Social history: Smoking status: Patient states was never smoker of tobacco. No barriers to communication noted, The patient speaks fluent [place] Citizen, Speaks appropriately for age. - : The pt / caregiver states he / she is not on anticoagulants. Home medication list is obtained from the patient. - Hospitalizations: : No recent hospitalization is reported. - Exposure Risk Screening:: None identified. - Immunization history:: All immunizations up-to-date. - Family history: Not pertinent. - Social history:: the patient is a non-smoker, the patient does not drink alcohol. ROS: 12:51 All systems are negative except as listed. pc Exam: 12:51 General Appearance: alert, the patient is in mild distress. pc 12:51 EENT: normal eye inspection, ears, nose and throat normal, pharynx normal, mucous membranes moist 12:51 Neck: The exam reveals no acute abnormalities. ROM is normal and painless. No nuchal rigidity is noted.. 12:51 Respiratory: no respiratory distress, normal breath sounds, chest non-tender. 12:51 CVS: regular pulse rate, regular rhythm, normal S1 and S2, no murmurs, strong peripheral pulses. 12:51 Abdomen: soft, non-tender, no organomegaly, normal bowel sounds. 12:51 Back: normal inspection. 12:51 Skin: skin color is normal, warm, dry, healing right LE ulcer. 12:51 Extremities: grossly normal except: noted in the left hip: decreased ROM, pain, leg shortened by 2cm. NVT normal, noted in the left femoral area: pain. 12:51 Neuro: no motor deficits, no sensory deficits. Vital Signs: 12:45 BP 178 / 74 LA Sitting (auto/reg); Pulse 77; Resp 18; Temp 95.5; Pulse Ox 99% on R/A; jrd Weight 51.71 kg / 114 lbs (R); Height 57 in. (144.78 cm); 13:37 BP 193 / 82 (auto/); kc3 13:38 Pulse 64 MON; Pulse Ox 97% ; kc3 13:52 BP 194 / 81 (auto/); kc3 13:52 Pulse 68 MON; Pulse Ox 98% ; kc3 14:07 BP 173 / 70 (auto/); kc3 14:07 Pulse 66 MON; Pulse Ox 97% ; kc3 14:22 BP 184 / 77 (auto/); kc3 14:22 Pulse 68 MON; Temp 96.9(O); Pulse Ox 96% ; kc3 14:36 Pulse 64 MON; Pulse Ox 96% ; kc3 14:37 BP 162 / 58 (auto/); kc3 14:51 Pulse 66 MON; Pulse Ox 97% ; kc3 14:52 BP 164 / 70 (auto/); kc3 15:06 Pulse 64 MON; Pulse Ox 95% ; kc3 15:07 BP 160 / 71 (auto/); kc3 15:16 BP 160 / 71; kc3 15:22 BP 154 / 69 (auto/); kc3 15:22 Pulse 64 MON; Pulse Ox 94% ; kc3 15:37 BP 172 / 67 (auto/); kc3 15:37 Pulse 66 MON; Pulse Ox 98% ; kc3 15:51 Pulse 70 MON; Pulse Ox 100% ; kc3 15:52 BP 172 / 72 (auto/); kc3 16:07 Pulse 68 MON; Pulse Ox 98% ; kc3 16:07 BP 179 / 97 (auto/); kc3 16:18 Pulse 66 MON; Pulse Ox 96% ; kc3 16:20 BP 164 / 71 (auto/); kc3 16:36 Pulse 68 MON; Pulse Ox 95% ; kc3 16:37 BP 171 / 76 (auto/); kc3 16:57 BP 171 / 76; Pain 9/10; kc3 17:06 Pulse 68 MON; Pulse Ox 96% ; kc3 17:07 BP 154 / 66 (auto/); kc3 17:37 BP 174 / 69 (auto/); kc3 17:37 Pulse 66 MON; Pulse Ox 96% ; kc3 18:02 BP 146 / 71 RA Sitting (auto/reg); Pulse 74; Resp 18; Temp 96.6(O); Pulse Ox 97% on jrd R/A; Pain 8/10; 18:06 Pain 8/10; kc3 12:45 Body Mass Index 24.67 (51.71 kg, 144.78 cm) jrd MDM: 12:50 IV Saline Lock ordered. pc 12:50 morphine 2 mg IVP once ordered. pc 12:50 Ondansetron 4 mg IVP once ordered. pc 12:51 NOTHING BY MOUTH+DIET ordered. EDMS 12:51 Hip,AP,LAT to include Pelvis Ordered. EDMS 12:51 Differential Diagnosis: fall; left hip and pelvic contusions r/o fractures. Plan: pc analgesia, imaging. 13:20 NS 0.9% 1000 ml IV at 100 mL/hr continuous ordered. pc 13:22 Chest, 1 View Ordered. EDMS 13:22 CBC with Diff Ordered. EDMS 13:22 MED Profile Ordered. EDMS 13:22 CIP Ordered. EDMS 13:22 Troponin Ordered. EDMS 13:22 Type & Screen Ordered. EDMS 13:22 Pt & Aptt Ordered. EDMS 13:22 ECG WITH READING ER PHYS+CARDIAG ordered. EDMS 13:32 Financial registration complete. mm15 13:43 [facility] Payment Agreement was scanned into [email or web address] and attached to record. mm15 14:08 Test interpretation: EKG. pc 14:10 CBC with Diff Reviewed. pc 14:10 MED Profile Reviewed. pc 14:10 CIP Reviewed. pc 14:10 Troponin Reviewed. pc 14:10 Pt & Aptt Reviewed. pc 14:15 Repeat Temperature - Oral: Inform provider of result ordered. pc 14:26 Type & Screen Reviewed. pc 14:49 morphine 2 mg IVP every 15 minutes; Document pain score/vitals after each dose (Hold if pc SBP < 90mmHg) x3 ordered. 14:49 Data reviewed: old medical records, vital signs, nurses notes, EKG(s), lab test pc results, all radiology studies and available results. Test interpretation: LAB - all labs as ordered have been reviewed, interpreted and considered in the overall management of the clinical presentation; X-RAY - interpreted by Radiologist and personally reviewed, 1 view chest no acute disease, Hip Left Fracture Intertrochanteric. The patient has been re-examined and re-evaluated. The patient's symptoms have mildly improved after treatment. Physician consultation: Dr. Cecil Mcarthur regarding patient's condition, and will see patient in ED. 14:49 Physician consultation: Dr. Donnie Gallo regarding admission, and will see patient in ED. Disposition: The historical points, examination findings, and any diagnostic results supporting the provided diagnosis, were discussed with the patient or legal guardian. The need for further work-up and/or treatment in the hospital was explained. 14:50 BED REQUEST+ADM ordered. EDMS 16:20 Admission / Observation Status ordered. EDMS 16:20 NPO DIET ordered. EDMS 16:21 CARDIAC INJURY PROFILE Ordered. EDMS 16:21 TROPONIN Ordered. EDMS 16:23 PHYSICAL THERAPY EVAL & TREAT ordered. EDMS 16:52 Hip, IN O.R. Ordered. EDMS 11/07 18:06 PCR was scanned into [employer] and attached to record. kf3 11/08 10:19 ECG/EKG was scanned into [employer] and attached to record. gb 10:19 PCR was scanned into [employer] and attached to record. gb EC/11 14:08 Rate is 62 beats/min. Rhythm is regular, Normal Sinus Rhythm. Left axis deviation pc noted. QRS is negative in leads II, aVF. ME interval is normal. QRS interval is prolonged at 145 msec. T waves are Inverted in leads I, aVL, V5, V6. ST Segment is elevated in leads III, aVF, V1, V2, V3, 1-2mm. ST Segment is depressed in leads I, aVL, V5, V6. Clinical impression: Normal Sinus Rhythm, LBBB, and LAD. No change from previous ECG in April,. Administered Medications: 13:05 Drug: morphine 2 mg [morphine 2 mg/mL intravenous cartridge (1 mL)] Route: IVP; Site: kc3 left antecubital; 13:05 Drug: Ondansetron 4 mg [ondansetron HCl 2 mg/mL intravenous solution (2 mL)] Route: kc3 IVP; Site: left antecubital; 13:56 Drug: NS 0.9% 1000 ml [sodium chloride 0.9 % intravenous solution] Route: IV; Rate: 100 kc3 mL/hr; Site: left antecubital; 14:55 Drug: morphine 2 mg [morphine 2 mg/mL intravenous cartridge (1 mL)] Route: IVP; Site: kc3 left antecubital; 15:16 Follow up: BP 160 / 71; Pt reports does not want any more pain medication at this time. kc3 16:26 Drug: morphine 2 mg [morphine 2 mg/mL intravenous cartridge (1 mL)] Route: IVP; Site: 3 left antecubital; 16:57 Follow up: BP 171 / 76; Pain 9/10 Adult kc3 16:58 Drug: morphine 2 mg [morphine 2 mg/mL intravenous cartridge (1 mL)] Route: IVP; Site: kc3 left antecubital; 18:06 Follow up: Pain 05/05 Adult kc3 Signatures: Dispatcher [employer] EDMS Tex Calvert MD MD pc Murray, Denise, Client Relation Specialist Unit deg Babs, Colleen, Reg Reg gb Jamal Ewing, Reg Reg kf3 Kobe Ardon mm15 Nandini Vickers,RN RN kc3 The chart was reviewed and I authenticate all verbal orders and agree with the evaluation and treatment provided.Attachments: 13:43 [facility] [place] mm15 11/08 10:19 ECG/EKG gb Chart Complete MTDD
[2016-11-08] MEDS: SIMVASTATIN 20 MG TAB PO SCH (21:52)
[2016-11-08] MEDS: ASPIRIN 81 MG CHEW TABLET PO SCH (21:52)
[2016-11-08] MEDS: ATENOLOL 12.5MG PER 1/2 TABLET PO SCH (21:53)
[2016-11-08 22:00] VITALS: BP 153/67
[2016-11-09] MEDS: ACETAMINOPHEN TAB 650MG DOSE (2X325MG) PO PRN ×3 (02:31→13:26)
[2016-11-09 06:00] VITALS: BP 145/73
[2016-11-09 07:19] LABS: INR 1.57; MEAN CORPUSCULAR HEMOGLOBIN 33.5 pg (27.0-33.0); RED CELL DISTRIBUTION WIDTH 15.9 % (11.5-14.5)
[2016-11-09 07:25] LABS: ANION GAP 7 MEQ/L (8-16); BLOOD UREA NITROGEN 19 MG/DL (7-18); CALCIUM LEVEL 7.9 MG/DL (8.8-10.2); CARBON DIOXIDE LEVEL 33 MEQ/L (21-32); CHLORIDE LEVEL 103 MEQ/L (98-107); CREATININE FOR GFR 0.58 MG/DL (0.55-1.02); GLOMERULAR FILTRATION RATE > 60.0 (>32); GLUCOSE, FASTING 93 MG/DL (83-110); POTASSIUM SERUM 4.2 MEQ/L (3.5-5.1); SODIUM LEVEL 143 MEQ/L (136-145)
[2016-11-09] MEDS ORDERED: SENN1TAB2 PO (08:02)
[2016-11-09] MEDS ORDERED: COUM7.5T PO (08:02)
[2016-11-09 08:33] LABS: MEAN CORPUSCULAR VOLUME 100.1 fl (80.0-96.0)
[2016-11-09] MEDS: BRIMONIDINE 0.1% OPHTH SOLN 5 ML OU SCH ×2 (09:59→21:48)
[2016-11-09] MEDS: MIRALAX *UNIT DOSE* 17GM PACKET PO SCH (09:59)
[2016-11-09] MEDS: SENOKOT S TAB PO SCH ×2 (09:59→21:49)
[2016-11-09] MEDS: MOM 30ML SUSPENSION UDC PO SCH (09:59)
[2016-11-09] MEDS: ALLOPURINOL 100 MG TAB PO SCH ×2 (09:59→21:49)
[2016-11-09] MEDS: VITAMIN D 1,000 INTERNATIONAL UNITS TABLET PO SCH (09:59)
[2016-11-09] MEDS: PANTOPRAZOLE 40MG TAB (PROTONIX) PO SCH ×2 (09:59→21:49)
[2016-11-09 14:00] VITALS: BP 160/70
[2016-11-09] MEDS ORDERED: WARFARIN SOD 7.5 MG TAB PO ONE (17:00)
--- NOTE | 2016-11-09 18:15 | IPN ---
DATE: 11/09/2016 The patient is seen and examined. No acute events overnight. Denies any chest pain, pressure or discomfort. Still reported weakness and tired. Alert and oriented times three. Denies any chest pain, pressure, discomfort, shortness of breath, nausea, vomiting, fevers or chills. The patient did report having some discomfort with swallowing. VITAL SIGNS: Temperature is 97.9, pulse 72, respirations 16, blood pressure 160/70, pulse oximetry 100% on room air. LABORATORY DATA: WBC 8, hemoglobin and hematocrit 10/29.5, platelets 101. Chemistry: Sodium 143, potassium 4.2, chloride 103, bicarbonate 33, BUN 19, creatinine 0.58, INR 1.57. PHYSICAL EXAMINATION: GENERAL: Frail, elderly, female lying in bed in no acute distress. HEENT: Normocephalic, atraumatic. Moist mucous membranes. Cranial nerves II through XII grossly intact. CARDIAC: Regular. S1, S2. No murmurs detected. RESPIRATORY: Bilaterally clear. Distant breath sounds. ABDOMEN: Soft, nontender. Positive bowel sounds. EXTREMITIES: No clubbing, cyanosis or edema. Left hip dressing clean, dry and intact. ASSESSMENT AND PLAN: This is an 86-year-old female patient with underlying medical history of left bundle branch block, hypertension, dyslipidemia, osteoarthritis, compression fractures, squamous cell skin cancer, diverticulosis, who presented status post fall with left hip fracture. 1. Left hip fracture, status post mechanical repair, postoperative day number 3. Orthopedics consulted. Pain regimen and deep vein thrombosis (DVT) prophylaxis as per orthopedics. Physical therapy (PT), occupational therapy (OT) as per orthopedics as well. Physical Medicine and Rehabilitation (PM R) evaluation. The patient is on Coumadin for DVT prophylaxis. Was transfused 2 units packed red blood cells for acute blood loss anemia due to fracture. 2. Acute blood loss anemia. The patient received 2 units of packed red blood cells. Followup hemoglobin and hematocrit. Continue to monitor. 3. Postoperative acute hypercarbic respiratory failure, responded to Narcan. Currently improved and almost back to baseline respiratory status. We will continue to monitor. Avoid opioids as much as possible. 4. Hypertension. Continue atenolol. 5. Gout. Continue allopurinol. 6. Osteoporosis. Continue home medications. 7. Dyslipidemia. Continue statin. 8. Gastroesophageal reflux disease (GERD). Continue proton pump inhibitor. 9. Constipation. Continue bowel regimen. 10. Dysphagia. Speech and swallow evaluation. 11. DVT prophylaxis. The patient is on Coumadin as per orthopedic team. DISPOSITION: PT, BARB, PM R evaluation. Possible short term rehabilitation versus acute rehabilitation.
[2016-11-09 21:49] VITALS: BP 172/70
[2016-11-09] MEDS: ATENOLOL 12.5MG PER 1/2 TABLET PO SCH (21:49)
[2016-11-09] MEDS: SIMVASTATIN 20 MG TAB PO SCH (21:49)
[2016-11-09] MEDS: ASPIRIN 81 MG CHEW TABLET PO SCH (21:49)
[2016-11-09 22:00] VITALS: BP 172/70
[2016-11-10 06:00] VITALS: BP 125/65
[2016-11-10] MEDS: ACETAMINOPHEN TAB 650MG DOSE (2X325MG) PO PRN (06:25)
[2016-11-10 07:04] LABS: INR 1.84
[2016-11-10 07:05] LABS: MEAN CORPUSCULAR HEMOGLOBIN 32.2 pg (27.0-33.0); MEAN CORPUSCULAR HGB CONC 32.3 g/dl (32.0-36.5); MEAN CORPUSCULAR VOLUME 99.6 fl (80.0-96.0); RED CELL DISTRIBUTION WIDTH 15.7 % (11.5-14.5); WHITE BLOOD COUNT 6.9 K/mm3 (4.0-10.0)
[2016-11-10 07:12] LABS: ANION GAP 6 MEQ/L (8-16); BLOOD UREA NITROGEN 16 MG/DL (7-18); CALCIUM LEVEL 8.1 MG/DL (8.8-10.2); CARBON DIOXIDE LEVEL 34 MEQ/L (21-32); CHLORIDE LEVEL 102 MEQ/L (98-107); CREATININE FOR GFR 0.65 MG/DL (0.55-1.02); GLOMERULAR FILTRATION RATE > 60.0 (>32); GLUCOSE, FASTING 99 MG/DL (83-110); POTASSIUM SERUM 4.2 MEQ/L (3.5-5.1); SODIUM LEVEL 142 MEQ/L (136-145)
[2016-11-10] MEDS: MIRALAX *UNIT DOSE* 17GM PACKET PO SCH (09:36)
[2016-11-10] MEDS: VITAMIN D 1,000 INTERNATIONAL UNITS TABLET PO SCH (09:36)
[2016-11-10] MEDS: PANTOPRAZOLE 40MG TAB (PROTONIX) PO SCH (09:36)
[2016-11-10] MEDS: SENOKOT S TAB PO SCH (09:36)
[2016-11-10] MEDS: ALLOPURINOL 100 MG TAB PO SCH (09:36)
[2016-11-10] MEDS: MOM 30ML SUSPENSION UDC PO SCH (09:36)
[2016-11-10] MEDS: BRIMONIDINE 0.1% OPHTH SOLN 5 ML OU SCH (09:37)
--- NOTE | 2016-11-11 11:17 | DSES ---
DATE OF ADMISSION: 11/06/2016 DATE OF DISCHARGE: 11/10/2016 DISCHARGE DIAGNOSIS: Left hip fracture. SECONDARY DIAGNOSES: 1. Postoperative acute pulmonary insufficiency. 2. Acute blood loss anemia secondary to surgery. 3. Hypertension. 4. Gout. 5. Osteoporosis. 6. Dyslipidemia. 7. Gastroesophageal reflux disease (GERD). HOSPITAL COURSE: The patient is an 86-year-old female who suffered a mechanical fall and had a left hip fracture. She was re-stratified by medicine. She did undergo operative repair for her left hip on 11/06/2016. Postoperatively, she did have some acute pulmonary insufficiency where she began retaining PCO2 secondary to narcotics. She did receive Narcan with complete resolution of her symptoms. Shortly after this, the next day, the patient had symptomatic anemia, acute blood loss anemia secondary to her operative repair. She did receive 2 units of packed red blood cells and following this her hemoglobin and hematocrit remained stable and she improved symptomatically. SUBJECTIVE: Today, the patient tells me that she feels well. She has no complaints. She feels better than she has in many days. She is eager to leave the hospital and continue her rehabilitation. OBJECTIVE: VITAL SIGNS: Temperature is 96.9, pulse 55, respiratory rate 18, blood pressure 125/69, oxygen saturation 95% on room air. GENERAL: She is a frail, elderly, pleasant, female sitting in bed and eating breakfast. She does not appear to be in any distress. HEENT: Cranial nerves II through XII are grossly intact. She has moist mucous membranes. No elevation in central venous pressure. CARDIOVASCULAR EXAM: S1, S2. Regular. RESPIRATORY EXAM: Clear. ABDOMINAL EXAM: Benign. EXTREMITIES: No clubbing, cyanosis or edema. Her left hip dressing is clean, dry and intact. LABORATORY STUDIES: WBC 6.9, hemoglobin 10.5, hematocrit 32.5, platelet count 133. Chemistry panel: Sodium 142, potassium 4.2, chloride 102, bicarbonate 34, BUN 16, creatinine 0.6, INR is 1.8. No new imaging. ASSESSMENT AND PLAN: This is an 86-year-old female postoperative day 5 for left hip fracture after mechanical fall. 1. Post hip fracture, management as per orthopedic surgery. Activity, followup, and dressing changes as per orthopedic surgery, whose help has been greatly appreciated. 2. Postoperative and acute pulmonary insufficiency, resolved. 3. Acute blood loss anemia, resolved with transfusion. 4. Hypertension. Controlled with atenolol. 5. Gout. Controlled with allopurinol. 6. Osteoporosis. She is on vitamin D supplementation. 7. Dyslipidemia. She is on a statin. 8. Gastroesophageal reflux disease (GERD). She is on proton pump inhibitor. 9. Deep vein thrombosis (DVT) prophylaxis. The patient is on Coumadin. DISPOSITION: The patient is being discharged to [facility]. She is to followup with her primary care provider in [address] Barba in 2 weeks. She is to walk with a walker, partial weight bearing. Diet is as prior admission. Wound care is as per orthopedics, [place]. She is to return to the emergency room if her symptoms worsen. Shower as needed. DISCHARGE MEDICATIONS: At the time of discharge: - Senna plus 8.6/50 mg twice a day - Coumadin 3.75 mg - allopurinol 100 mg twice a day - aspirin mg at night - atenolol 12.5 mg at night - Alphagan one drop in each twice a day - calcium carbonate 600 mg daily - vitamin D 1000 units daily - cholestyramine 100 mg twice a day as needed for constipation - flax seed oil 2 grams twice a day, as per the patient - Protonix 40 mg twice a day - simvastatin 20 mg at night - tramadol/acetaminophen half of a tablet of 37.5/325 by mouth daily at bedtime Of note, the patient is to be on Coumadin through 12/06/2016 with a target INR of 2.0. She is to wear TEDs, off one hour in the morning and one hour in the evening. She is to call Dr. Barba if her temperature is greater than 101, increased pain, redness, swelling, or any concerns. Her appointment with Dr. Barba for followup is 11/24/2016 at 11:00 a.m. Greater than 30 minutes was spent organizing disposition.
== END 2016-11-10 13:30 | DRG 480 ==
LOC: M ED 12:25 → M MS5PR 16:15 → M ED INP 16:16 → M MS5PR 18:17
PROVIDERS: ADMIT Internal Medicine; ATTEND Internal Medicine
PROC: 0QS704Z Reposition Left Upper Femur with Internal Fixation Device, Open Approach (ICD-10-PCS; principal; 2016-11-06 16:33)
PROC: 30253N1 (ICD-10-PCS; 2016-11-08)
DX: S72.142A Displaced intertrochanteric fracture of left femur, initial encounter for closed fracture (principal); J95.2 Acute pulmonary insufficiency following nonthoracic surgery; D62 Acute posthemorrhagic anemia; W07.XXXA Fall from chair, initial encounter; Y92.011 Dining room of single-family (private) house as the place of occurrence of the external cause; I44.7 Left bundle-branch block, unspecified; I10 Essential (primary) hypertension; E78.5 Hyperlipidemia, unspecified; M81.0 Age-related osteoporosis without current pathological fracture; R26.81 Unsteadiness on feet; K21.9 Gastro-esophageal reflux disease without esophagitis; K59.00 Constipation, unspecified; I27.2 Other secondary pulmonary hypertension; R13.10 Dysphagia, unspecified; M10.9 Gout, unspecified; J44.9 Chronic obstructive pulmonary disease, unspecified; Z79.82 Long term (current) use of aspirin; Z79.899 Other long term (current) drug therapy; Z79.891 Long term (current) use of opiate analgesic; Z85.828 Personal history of other malignant neoplasm of skin; Z90.710 Acquired absence of both cervix and uterus; Z88.0 Allergy status to penicillin; Z88.1 Allergy status to other antibiotic agents; Z88.8 Allergy status to other drugs, medicaments and biological substances; Y99.8 Other external cause status

== ENCOUNTER → 2016-11-11 | Outpatient (REF) ==
[~2016-11-11] MED LIST changes: +ASPI1TAB PO; +BRIM1OPD OU; +CALC600T21 PO; +COLA100C PO; +COUM7.5T PO; +FLAX1000 PO; +PROT1TAB2 PO; +SENN1TAB2 PO; +TRAM37.53 PO; +VITA100066 PO
[2016-11-11 09:23] LABS: INR 1.64
== END ==
LOC: SKLAB3 08:00
PROVIDERS: ATTEND Family Medicine
DX: Z79.01 Long term (current) use of anticoagulants (principal)

== ENCOUNTER → 2016-11-15 | Outpatient (REF) ==
[2016-11-15 09:20] LABS: INR 1.9
[2016-11-15 09:33] LABS: BASO % 0.5 % (0.0-1.0); EOS # 0.2 K/mm3 (0.0-0.50); EOS % 2.4 % (0.0-3.0); LARGE UNSTAINED CELL # 0.2 K/mm3 (0.0-0.4); LARGE UNSTAINED CELL % 2.4 % (0.0-4.0); LYMPH % 25.6 % (24.0-44.0); MEAN CORPUSCULAR HGB CONC 32.3 g/dl (32.0-36.5); MEAN CORPUSCULAR VOLUME 102.3 fl (80.0-96.0); MONO # 0.5 K/mm3 (0.0-0.8); MONO % 6.2 % (0.0-5.0); NEUTROPHILS # 4.5 K/mm3 (1.8-7.7); NEUTROPHILS % 62.8 % (36.0-66.0); PLATELET COUNT, AUTOMATED 252 k/mm3 (150-450); RED CELL DISTRIBUTION WIDTH 15.4 % (11.5-14.5); WHITE BLOOD COUNT 7.2 K/mm3 (4.0-10.0)
[2016-11-15 09:44] LABS: ANION GAP 10 MEQ/L (8-16); BLOOD UREA NITROGEN 26 MG/DL (7-18); CALCIUM LEVEL 8.4 MG/DL (8.8-10.2); CARBON DIOXIDE LEVEL 30 MEQ/L (21-32); CHLORIDE LEVEL 100 MEQ/L (98-107); CHOLESTEROL LEVEL 126 MG/DL (<200); CREATININE FOR GFR 0.78 MG/DL (0.55-1.02); GLOMERULAR FILTRATION RATE > 60.0 (>32); GLUCOSE, FASTING 138 MG/DL (83-110); POTASSIUM SERUM 4.4 MEQ/L (3.5-5.1); SODIUM LEVEL 140 MEQ/L (136-145); TRIGLYCERIDES LEVEL 121 MG/DL (<150)
== END ==
LOC: SKLAB3 08:00
PROVIDERS: ATTEND Family Medicine
DX: Z51.81 Encounter for therapeutic drug level monitoring (principal); Z79.01 Long term (current) use of anticoagulants; Z79.899 Other long term (current) drug therapy

== ENCOUNTER → 2016-11-18 | Outpatient (REF) ==
[2016-11-18 08:25] LABS: INR 2.04
== END ==
LOC: SKLAB3 07:00
PROVIDERS: ATTEND Family Medicine
DX: Z79.01 Long term (current) use of anticoagulants (principal)

== ENCOUNTER → 2016-11-22 | Outpatient (REF) ==
[2016-11-22 09:26] LABS: INR 1.95
== END ==
LOC: SKLAB3 12:58
PROVIDERS: ATTEND Family Medicine
DX: Z79.01 Long term (current) use of anticoagulants (principal)

== ENCOUNTER → 2016-11-25 | Outpatient (REF) ==
[2016-11-25 10:04] LABS: INR 1.65
== END ==
LOC: SKLAB3 07:23
PROVIDERS: ATTEND Family Medicine
DX: Z79.01 Long term (current) use of anticoagulants (principal)

== ENCOUNTER → 2016-11-29 | Outpatient (REF) ==
[2016-11-29 09:04] LABS: INR 1.87
== END ==
LOC: SKLAB3 12:44
PROVIDERS: ATTEND Family Medicine
DX: Z79.01 Long term (current) use of anticoagulants (principal)

== ENCOUNTER → 2016-12-02 | Outpatient (REF) ==
[2016-12-02 08:20] LABS: INR 1.81
== END ==
LOC: SKLAB3 07:00
PROVIDERS: ATTEND Family Medicine
DX: Z79.01 Long term (current) use of anticoagulants (principal)

== ENCOUNTER → 2017-01-24 | Outpatient (REF) ==
[~2017-01-24] MED LIST changes: -COLA100C PO; +COLA100C3 PO
[2017-01-24 09:23] LABS: BASO % 0.6 % (0.0-1.0); EOS # 0.1 K/mm3 (0.0-0.50); EOS % 2.1 % (0.0-3.0); LARGE UNSTAINED CELL # 0.1 K/mm3 (0.0-0.4); LARGE UNSTAINED CELL % 1.9 % (0.0-4.0); LYMPH # 1.6 K/mm3 (1.5-4.5); LYMPH % 27.9 % (24.0-44.0); MEAN CORPUSCULAR HEMOGLOBIN 36.1 pg (27.0-33.0); MEAN CORPUSCULAR HGB CONC 34.7 g/dl (32.0-36.5); MONO # 0.3 K/mm3 (0.0-0.8); MONO % 5.3 % (0.0-5.0); NEUTROPHILS # 3.5 K/mm3 (1.8-7.7); NEUTROPHILS % 62.1 % (36.0-66.0); PLATELET COUNT, AUTOMATED 166 k/mm3 (150-450); RED CELL DISTRIBUTION WIDTH 13.4 % (11.5-14.5); WHITE BLOOD COUNT 5.7 K/mm3 (4.0-10.0)
[2017-01-24 09:38] LABS: ANION GAP 4 MEQ/L (8-16); BLOOD UREA NITROGEN 27 MG/DL (7-18); CARBON DIOXIDE LEVEL 35 MEQ/L (21-32); CHLORIDE LEVEL 101 MEQ/L (98-107); CREATININE FOR GFR 0.89 MG/DL (0.55-1.02); GLOMERULAR FILTRATION RATE > 60.0 (>32); GLUCOSE, FASTING 123 MG/DL (83-110); POTASSIUM SERUM 4.1 MEQ/L (3.5-5.1); SODIUM LEVEL 140 MEQ/L (136-145); URIC ACID 2.9 MG/DL (2.6-6.0)
== END ==
LOC: SKLAB3 08:00
PROVIDERS: ATTEND Family Medicine
DX: I10 Essential (primary) hypertension (principal); M10.9 Gout, unspecified

== ENCOUNTER → 2017-03-09 | Outpatient (REF) | payer MEDICARE, OTHER | LOC: M LAB REF 15:15 | PROVIDERS: ATTEND Nurse Practitioner Family | DX: L08.9 Local infection of the skin and subcutaneous tissue, unspecified (principal) ==

== ENCOUNTER → 2017-07-15 | Outpatient (REF) | payer MEDICARE, OTHER ==
[~2017-07-15] MED LIST changes: -CALC600T21 PO; +CALC600T60 PO; -COLA100C3 PO; +COLA100C5 PO
== END ==
LOC: SKLAB3 07:02
PROVIDERS: ATTEND Family Medicine
DX: I10 Essential (primary) hypertension (principal); E78.4 Other hyperlipidemia; M10.9 Gout, unspecified; E55.9 Vitamin D deficiency, unspecified; K21.9 Gastro-esophageal reflux disease without esophagitis

== ENCOUNTER → 2017-08-08 | Outpatient (REF) | payer MEDICARE, OTHER | LOC: M LAB REF 17:44 | PROVIDERS: ATTEND Surgery | DX: C44.42 Squamous cell carcinoma of skin of scalp and neck (principal) ==

== ENCOUNTER → 2017-08-23 | Outpatient (REF) | payer MEDICARE, OTHER | LOC: SKLAB3 10:38 | PROVIDERS: ATTEND Family Medicine | DX: N39.42 Incontinence without sensory awareness (principal) ==

== ENCOUNTER → 2017-11-07 | Outpatient (REF) | payer MEDICARE, OTHER ==
[2017-11-07 14:45] LABS: INFLUENZA A AMPLIFICATION POSITIVE (NEGATIVE); INFLUENZA B AMPLIFICATION NEGATIVE (NEGATIVE); RSV AMPLIFICATION NEGATIVE (NEGATIVE)
== END ==
LOC: SKLAB3 09:17
DX: R50.9 Fever, unspecified (principal); R05 Cough
CPT/HCPCS: 87631

== ENCOUNTER → 2018-01-09 | Outpatient (REF) | payer MEDICARE, OTHER ==
[2018-01-09 08:23] LABS: ALT/SGPT 13 U/L (12-78); ANION GAP 6 MEQ/L (8-16); BLOOD UREA NITROGEN 15 MG/DL (7-18); CALCIUM LEVEL 8.6 MG/DL (8.8-10.2); CARBON DIOXIDE LEVEL 30 MEQ/L (21-32); CHLORIDE LEVEL 107 MEQ/L (98-107); CHOLESTEROL LEVEL 136 MG/DL (<200); CREATININE FOR GFR 0.76 MG/DL (0.55-1.30); GLOMERULAR FILTRATION RATE > 60.0 (>32); GLUCOSE, FASTING 81 MG/DL (70-100); HDL CHOLESTEROL 40 MG/DL (>40); LDL CHOLESTEROL 52.6 MG/DL (<100); NON-HDL-C 96 MG/DL; POTASSIUM SERUM 4.1 MEQ/L (3.5-5.1); SODIUM LEVEL 143 MEQ/L (136-145); TRIGLYCERIDES LEVEL 217 MG/DL (<150)
[2018-01-09 11:07] LABS: TOTAL 25(OH) VITAMIN D 36.3 NG/ML (30.0-100.0)
== END ==
LOC: SKLAB3 07:00
DX: I10 Essential (primary) hypertension (principal); E78.5 Hyperlipidemia, unspecified; E55.9 Vitamin D deficiency, unspecified
CPT/HCPCS: 84460